=== PATIENT | male | born 1955 | race Caucasian/White ===

== ENCOUNTER 2023-08-04 08:18 | Inpatient (IN) | payer MEDICARE, SELFPAY ==
[2023-08-04] VITALS (12 sets, daily range): BP systolic 126–174; BP diastolic 74–115; PULSE 80–106; RESP 16–32; TEMP 36.6–37.4; O2SAT 78–97; BMI 40.6; BMI 55.7
[2023-08-04 08:32] LABS: Blood Gas Specimen Type VEN; O2 Delivery Device Cannula; SITE Not entered; VBG BASE EXCESS 5 mmol/L (-1.0-3.5); VBG Bicarbonate 31 mmol/L (22-26); VBG PO2 41 mmHg (25-40); VBG SO2 68 % (50-70); VBG TCO2 33 mmol/L (23-33); VBG pCO2 64.4 mmHg (41-51)
--- NOTE | 2023-08-04 08:34 | EKG12_ITS ---
Test Reason : SOB Blood Pressure : / mmHG Vent. Rate : 106 BPM Atrial Rate : 106 BPM P-R Int : 140 ms QRS Dur : 130 ms QT Int : 366 ms P-R-T Axes : 057 -16 046 degrees QTc Int : 486 ms Sinus tachycardia with occasional Premature ventricular complexes Right bundle branch block Abnormal ECG Confirmed by GONZALEZ HARDING, CHESTER ([id number]), newspaper editor BOB DILL ([id number]) on 08/05/2023 9:57:16 AM Referred By: WAYNE/SHU Confirmed By:CHESTER ROTH MD
--- NOTE | 2023-08-04 08:34 | RAD_ITS ---
STUDY: X-RAY CHEST REASON FOR EXAM: Male, 67 years old. Chest pain. TECHNIQUE: Single frontal view of the chest. COMPARISON: None. FINDINGS: The lungs are clear and expanded. There is no demonstrated pleural abnormality. Cardiomegaly. Normal mediastinum and estrellita. Normal visualized pulmonary arteries. Normal visualized aortic arch and descending thoracic aorta. Normal visualized thoracic spine. Normal visualized ribs, clavicles, and shoulders. There is no demonstrated abnormality of the visualized soft tissue structures of the upper abdomen. RAD/Chest 1 View (Portable) IMPRESSION: No active or acute cardiopulmonary disease. Electronically Signed: Anand Spaulding MD at 9:31 EST ,
--- NOTE | 2023-08-04 08:36 | ED.RN ---
NO OLD EKG
--- NOTE | 2023-08-04 08:39 | EDS_ITS ---
HPI History of Present Illness Chief Complaint: Shortness of Breath Informant: patient Onset/Context/Timing Onset: Days Context: gradual Timing: Continuous Current Severity: Moderate Maximum Severity: Moderate Worsened by: Coughing Relieved by: Oxygen Associated Symptoms cough Chest Pain: Positive for None Narrative Narrative: 67-year-old male used to smoke quit 3 years ago. Denies any significant past medical history. Send his recently had COVID he has had a cough and chills with shortness of breath and wheezing over the last 3 to 4 days. Denies any fever. He had some vomiting without diarrhea. No history of DVT or PE. No leg pain or swelling. No hemoptysis. No recent travel, surgery or immobilization. PE Risk Factors: Negative for Cancer, OCP + Smoking + > 35, Prior DVT or PE, Recent immobilization, Recent surgery or Recent travel Recent Illness/Hospitalization: No PFSH PFSH Medical History Left inguinal hernia Perforated, severe stomach ulcer Home Medications hydrochlorothiazide 25 mg tablet 25 mg PO DAILY BLOOD PRESSURE 08/04/23 [History Last Taken 08/03/23] tamsulosin 0.4 mg capsule 0.4 mg PO QHS PROSTATE 08/04/23 [History Last Taken 08/03/23] Allergy/AdvReac Type Severity Reaction Status Date / Time No Known Allergies Allergy Verified 08/04/23 08:19 Social History Smoking Status: Former smoker alcohol intake: never ROS ROS ED ROS Narrative Cough. Chills. Wheezing. Shortness of breath. Review of Systems ROS Unobtainable: Denies due to encephalopathy Constitutional Constitutional ED: Reports chills; Denies fever(s) Eyes Eyes: Denies blurry vision ENT ENT ED: Denies ear pain or rhinorrhea Cardiovascular Cardiovascular: Denies chest pain Respiratory/Chest Respiratory/Chest: Reports cough and dyspnea Gastrointestinal Gastrointestinal: Reports nausea and vomiting; Denies abdominal pain, constipation, diarrhea or melena Genitourinary Genitourinary ED: Denies dysuria or hematuria Musculoskeletal Musculoskeletal: Denies arthralgias Integumentary Denies abscess Neurologic Neurologic: Denies headache(s) Psychiatric Psychiatric: Denies anxiety Endocrine Endocrinology: Denies cold intolerance Hematologic/Lymphatic Hematologic/Lymphatic: Denies easy bleeding, easy bruising or lymphadenopathy Allergic/Immunologic Allergic/Immunologic ED: Denies mouth swelling, tongue swelling or urticaria EXAM Physical Exam Narrative Exam Narrative: 67-year-old male respiratory distress. Improving however on oxygen. Temperature nine 9.4. Pulse ox initially on room air was 70% on 6 L he is 94%. He is obviously hypoxic on room air. HEENT exam mild dry mucous membranes. Neck nontender no JVD. No lymphadenopathy. Lungs coarse breath sounds bilaterally. Diffuse expiratory wheezes. No rales or rhonchi. Heart tachycardic 105 no murmur. Chest wall nontender. Abdomen soft nontender. Moving all 4 extremities. Nontender no edema. Neurologically is awake and alert with no focal motor deficits. Const Vital Signs: 08/04/23 08:19 08/04/23 08:22 08/04/23 08:20 Temperature 99.4 F H Temperature Source Oral Pulse Rate 105 H Respiratory Rate 32 H Respiratory Effort Normal Respiratory Depth Normal Respiratory Pattern Normal Blood Pressure 174/115 H Blood Pressure Mean 134 Pulse Ox 78 97 Oxygen Delivery Method Room Air Room Air Nasal Cannula Oxygen Flow Rate (L/min) 6 6 08/04/23 08:46 08/04/23 08:46 Temperature Temperature Source Pulse Rate 104 H Respiratory Rate 26 H Respiratory Effort Respiratory Depth Respiratory Pattern Tachypnea Blood Pressure Blood Pressure Mean Pulse Ox 97 Oxygen Delivery Method Nasal Cannula Oxygen Flow Rate (L/min) 4 Positive well nourished and well developed; Negative for cachectic, contractures or unkempt General Appearance ED: well developed; Negative for unkempt, cachectic, contractures, NAD or pallor Nutritional Appearance: Negative for cachectic HEENT Reports dry mucous membranes atraumatic; Negative for trauma or tenderness Mouth ED: Yes dry mucous membranes Mouth: dry mucous membranes Eyes PERRL and EOMs intact bilaterally General Eye ED: Negative for pale conjunctiva or scleral icterus Neck no lymphadenopathy, supple, no meningeal signs and no JVD General: Negative for tenderness Lymph Lymphatic: Negative for other Chest Wall Chest: Negative for other Resp No normal respiratory effort and No clear to auscultation bilaterally Auscultation: wheezes; Negative for rales, rhonchi or diminished lung sounds Cardio regular rhythm, S1 normal heart sound, S2 normal heart sound and no murmurs; Negative for regular rate Rate: tachycardic GI non-tender, non-distended and no masses Inspection: Negative for other Auscultation: normoactive bowel sounds Palpation: soft; Negative for tender, guarding or rebound tenderness present Back/Spine no CVA tenderness and normal to inspection General Back: Negative for CVA tenderness or tenderness Extremity normal to inspection General Extremety ED: Negative for edema or tenderness General Extremity: Negative for edema Neuro oriented x3 and CN's II-XII intact bilaterally Sensorium / Orientation: alert, oriented to person, oriented to place and oriented to time; Negative for orientation impaired, confused, lethargic or stuporous Motor Exam: strength 5/5 throughout Psych mental status grossly normal Appearance: Negative for unkempt Attitude: No agitated Mood & Affect: Negative for depressed, anxious or tearful Thought Process: normal thought process Skin no wounds and skin turgor normal General Skin Exam: Negative for jaundice or pallor Lesions: no lesions Rashes: no rashes Trauma: Negative for abrasion or laceration MDM MDM MDM Narrative Medical decision making narrative: 67-year-old male suspect viral respiratory infection most likely COVID. Wheezing will be treated with aerosols DuoNeb and albuterol. IV Solu-Medrol. Chest x-ray and labs. Most likely do his hypoxia need to be admitted. Repeat exam at 9:37 AM doing better but with oxygen on he still only at 89%. He is still wheezing. He will be admitted for acute hypoxia secondary to respiratory infection and bronchospasm. RSV positive. Hospitalist is on page. History & Record Review Discussion w/independent historian: Patient Additional record(s) reviewed:: Prior inpatient record, Prior outpatient record, Prior ED visit and Prior labs Lab Data Attestation: I reviewed the patient's lab results. Lab results narrative: Venous blood gas showed a pH of 7.29 with a pCO2 of 64 pO2 of 40 and a sat of 68%. Seen normal. White count 8. H&H 15 and 40. Platelets 189. Electrolytes show a gap of 4 normal BUN and creatinine 12 and 0.9. Glucose 145. Troponin normal at 21. RSV positive. COVID and flu negative. Labs: Laboratory Results - last 24 hr 08/04/23 08:21 WBC 8.3 RBC 4.78 Hgb 15.6 Hct 48.3 MCV 101.0 H MCH 32.6 H MCHC 32.3 RDW Std Deviation 48.2 H RDW Coeff of Huey 12.9 Plt Count 189 MPV 10.6 Immature Gran % (Auto) 0.400 Neut % (Auto) 82.6 H Lymph % (Auto) 7.4 L Wilcox % (Auto) 8.8 Eos % (Auto) 0.4 Baso % (Auto) 0.4 Absolute Neuts (auto) 6.9 Absolute Lymphs (auto) 0.61 L Nucleated RBC % 0 Sodium 136 Potassium 4.0 Chloride 100 Carbon Dioxide 32.0 Anion Gap 4 L BUN 12 Creatinine 0.90 Estim Creat Clear Calc 86.22 Est GFR (MDRD) Af Amer 107 Est GFR (MDRD) Non-Af 89 BUN/Creatinine Ratio 13.3 Glucose 145 H Calcium 9.2 Troponin I High Sens 21 ABG Data ABG results: ABG 08/04/23 08:28 Specimen Type CELIA Sample Site Not entered O2 % 6.0 VBG pH 7.30 L VBG pO2 41 H VBG HCO3 31 H VBG Total CO2 33 VBG O2 Sat (Calc) 68 VBG Base Excess 5 H POC Mix VBG pCO2 Pt Tmp 64.4 H O2 Delivery Device Cannula Radiography Chest X-Ray - ED: 1 View, Read by ED Physician, Read by Radiologist, Heart, Lungs, Mediastinum, Bony Structures, No Acute Disease and Chronic Changes Diagnostic Testing: Clinical Impression(s) from Imaging Studies Chest X-Ray 08/04/23 08:34 IMPRESSION: No active or acute cardiopulmonary disease. Electronically Signed: Anand Spaulding MD at 9:31 EST Reading Location ID and State: [address] [place] [address] , Service support , Chest x-ray portable, single view, interpreted myself and radiologist shows no acute abnormality. Normal cardiac silhouette. No infiltrate. Rhythm Strip Rhythm Strip: Sinus Tach Rate: 106 Ectopy: PVC(s) EKG Initial EKG: Attestation: I personally reviewed and interpreted this EKG as follows: Interpretation: No Acute Injury Pattern and Sinus Tachycardia Comments: Sinus tachycardia rate of 106. Right bundle branch block. Occasional PVCs. No acute signs of SC or ischemia. Discharge Plan Dx/Rx/DC Orders Clinical Impression: Bilateral wheezing, RSV bronchitis, Respiratory failure, Hypoxia Disposition Disposition: Acute Care Hospital [facility]
[2023-08-04] MEDS: MethylPREDNISolone 125 MG/2 ML Vial IV (08:42)
[2023-08-04] MEDS: Albuterol 2.5 MG/3 ML VIAL.NEB. INHALATION (08:46)
[2023-08-04] MEDS: Ipratropium/Albuterol Sulfate 3 ML AMPUL.NEB INHALATION ×3 (08:46→21:37)
[2023-08-04 09:07] LABS: Absolute Lymphocyte Count 0.61 X10^3/uL (0.83-4.51); Absolute Neutrophil Count 6.9 X10^3/uL (2.0-7.7); Basophil# 0.03 X10^3/uL; Basophil% 0.4 % (0-1); Eosinophil# 0.03 X10^3/uL; Eosinophils% 0.4 % (0-5); Hematocrit 48.3 % (40-54); Hemoglobin 15.6 g/dL (13.0-16.5); Lymphocyte # 0.61 X10^3/ul (0.83-4.51); Lymphocyte % 7.4 % (19-41); Mean Corp Hgb Conc 32.3 g/dL (32-36); Mean Corpuscular Hgb 32.6 pg (27.0-32.0); Mean Platelet Vol. 10.6 fl (6.2-12.0); Monocyte# 0.73 X10^3/uL; Monocyte% 8.8 % (0-10); NRBC Flagged by Analyzer 0 % (0-5); Neutrophil # 6.85 X10^3/uL (2.7-7.7); Neutrophil % 82.6 % (47-70); Platelet Count 189 K/mm3 (150-450); RBC Distribution Width CV 12.9 % (11.6-14.6); RBC Distribution Width SD 48.2 fl (35.1-43.9); Red Blood Count 4.78 M/mm3 (4.6-6.2); White Blood Count 8.3 K/mm3 (4.4-11.0)
[2023-08-04 09:10] LABS: Anion Gap 4 (5-15); BUN 12 mg/dL (7-18); BUN/Creat Ratio 13.3 RATIO (10-20); Calcium,Total 9.2 mg/dL (8.5-10.1); Chloride 100 mmol/L (98-107); EST Glomerular Filtration Rate 89 mL/min (>60); Est Glom Filt Rate - Afr Amer 107 mL/min (>60); Estimated Creatinine Clearance 86.22 ml/min; Glucose 145 mg/dL (74-106); Sodium Level 136 mmol/L (136-145); Troponin-I HS 21 pg/mL (3.0-78.0)
--- OUTSIDE RECORDS SUMMARY | 2023-08-04 09:31 | XMS RPT_ITS | CCD ---
Author Name Unknown Address [address] [place] [address] Organization [facility] Care Team Providers [facility] Name Role Phone Keanu Baldwin MD Primary Care Provider [phone] KEANU BALDWIN Primary Care Unavailable BALTAZAR CATALAN JR Attending UnavailBALTAZAR Santiago JR Referring UnavailKEANU Perez Referring Unavailable KEANU BALDWIN Primary Care Unavailable KEANU BALDWIN Attending Unavailable KEANU BALDWIN Primary Care Unavailable KEANU BALDWIN Referring Unavailable KEANU BADLWIN Primary Care Unavailable ABHISHEK DIAS Attending Unavailable KEANU BALDWIN Referring Unavailable KEANU BALDWIN Primary Care Unavailable KEANU BALDWIN Primary Care Unavailable KEANU BALDWIN Attending Unavailable Keanu Baldwin MD Primary Care Provider Medications Completed/Discontinued Medications Medication Drug Class(es) Dates Sig (Normalized) Sig (Original) acetaminophen 500 mg oral tablet (8 sources) Start: 04-10-2021 take 2 tablets by mouth every eight hours as needed acetaminophen (TYLENOL EXTRA STRENGTH) 500 mg tablet Take 2 tablets by mouth every 8 hours as needed for pain. 0 04/10/2021 Active Problems Active Problems Problem Classification Problem Date Documented Da te Episodic/Chronic Deficiency and other anemia (3 sources) Anemia; Translations: [Anemia, unspecified] Episodic Genitourinary symptoms and ill-defined conditions (1 source) Nocturia; Translations: [Benign prostatic hyperplasia with nocturia] Onset: 12-06-2022 Episodic Hyperplasia of prostate (2 sources) Nocturia due to benign prostatic hypertrophy; Translations: [Benign prostatic hyperplasia with lower urinary tract symptoms] Onset: 12-06-2022 Chronic Other male genital disorders (2 sources) Encysted hydrocele of spermatic cord; Translations: [Encysted hydrocele] Episodic Other male genital disorders (2 sources) Adult hydrocele; Translations: [Hydrocele, unspecified] Episodic Other nutritional; endocrine; and metabolic disorders (9 sources) Obese class II; Translations: [Obesity, unspecified] Onset: 04-03-2021 04-10-2021 Chronic Other nutritional; endocrine; and metabolic disorders (2 sources) Body mass index 40+ - severely obese; Translations: [Morbid (severe) obesity due to excess calories] Onset: 01-07-2023 01-07-2023 Chronic Other nutritional; endocrine; and metabolic disorders (1 source) Obesity, unspecified; Translations: [Obesity, Class II, BMI 35-39.9] Onset: 04-10-2021 Chronic Other screening for suspected conditions (not mental disorders or infectious disease) (3 sources) Patient encounter status; Translations: [Encounter for screening for malignant neoplasm of colon] Onset: 01-03-2023 Episodic Past or Other Problems Problem Classification Problem Date Documented Date Episodic/Chronic Abdominal hernia (9 sources) Inguinal hernia; Translations: [Unilateral inguinal hernia, without obstruction or gangrene, not specified as recurrent] Onset: 03-29-2021 03-29-2021 Episodic Deficiency and other anemia (1 source) Anemia, unspecified; Translations: [Anemia, unspecified type] Onset: 01-31-2022 Episodic Diabetes mellitus without complication (4 sources) Increased glucose level; Translations: [Other abnormal glucose] Onset: 01-31-2022 Episodic Residual codes; unclassified (9 sources) History of hernia repair; Translations: [Other specified postprocedural states] Onset: 04-10-2021 04-10-2021 Episodic Screening and history of mental health and substance abuse codes (8 sources) Ex-smoker; Translations: [Personal history of nicotine dependence] Onset: 03-30-2021 03-30-2021 Episodic Results Test Name Value Interpretation Reference Range Facil ity Vital Signs Date Time Vital Sign Value Performing Clinician Sriram gilbert 01-03-2023 13:40-0400 Diastolic blood pressure 78 mm[Hg] Abhishek Dias MD Work Phone: [facility] 01-03-2023 13:40-0400 Heart rate 66 /min Abhishek Dias MD Work Phone: [facility] 01-03-2023 13:40-0400 Respiratory rate 18 /min Abhishek Dias MD Work Phone: [facility] 01-03-2023 13:40-0400 SaO2% (BldA) [Mass fraction] 97 % Abhishek Dias MD Work Phone: [facility] 01-03-2023 13:40-0400 Systolic blood pressure 150 mm[Hg] Abhishek Dias MD Work Phone: [facility] 01-03-2023 11:31-0400 Body temperature 97.81 [degF] Abhishek Dias MD Work Phone: [facility] 12-02-2022 16:48-0400 Body height 175.3 cm Keanu Baldwin MD Work Phone: [facility] 12-02-2022 16:48-0400 Body weight 136.62 kg Keanu Baldwin MD Work Phone: [facility] 12-02-2022 16:48-0400 Diastolic blood pressure 92 mm[Hg] Keanu Baldwin MD Work Phone: [facility] 12-02-2022 16:48-0400 Heart rate 78 /min Keanu Baldwin MD Work Phone: [facility] 12-02-2022 16:48-0400 Respiratory rate 16 /min Keanu Baldwin MD Work Phone: [facility] 12-02-2022 16:48-0400 Systolic blood pressure 160 mm[Hg] Keanu Baldwin MD Work Phone: [facility] 02-19-2022 11:17-0400 Body height 175.3 cm Baltazar Catalan Jr., MD Work Phone: [facility] 02-19-2022 11:17-0400 Body weight 126.55 kg Baltazar Catalan Jr., MD Work Phone: [facility] 01-31-2022 10:48-0400 Body weight 127.28 kg Keanu Baldwin MD Work Phone: [facility] 01-31-2022 10:48-0400 Diastolic blood pressure 78 mm[Hg] Keanu Baldwin MD Work Phone: [facility] 01-31-2022 10:48-0400 Heart rate 68 /min Keanu Baldwin MD Work Phone: [facility] 01-31-2022 10:48-0400 Respiratory rate 16 /min Keanu Baldwin MD Work Phone: [facility] 01-31-2022 10:48-0400 Systolic blood pressure 130 mm[Hg] Keanu Baldwin MD Work Phone: [facility] 12-31-2021 15:23-0400 Body weight 130.18 kg Keanu Baldwin MD Work Phone: [facility] 12-31-2021 15:23-0400 Diastolic blood pressure 88 mm[Hg] Keanu Baldwin MD Work Phone: [facility] 12-31-2021 15:23-0400 Heart rate 64 /min Keanu Baldwin MD Work Phone: [facility] 12-31-2021 15:23-0400 Respiratory rate 20 /min Keanu Baldwin MD Work Phone: [facility] 12-31-2021 15:23-0400 SaO2% (BldA) [Mass fraction] 95 % Keanu Baldwin MD Work Phone: [facility] 12-31-2021 15:23-0400 Systolic blood pressure 140 mm[Hg] Keanu Baldwin MD Work Phone: [facility] 11-20-2021 13:35-0400 Body height 176.5 cm Baltazar Catalan Jr., MD Work Phone: [facility] 11-20-2021 13:35-0400 Body weight 123.83 kg Baltazar Catalan Jr., MD Work Phone: [facility] Encounters Encounter Date Encounter Type Care Provider Facility Start: 01-14-2023 Telephone encounter Abhishek Dias MD Work Phone: General Surgery Procedures Date Procedure Procedure Detail Performing Clinician Start: 01-03-2023 Level iv surg pathol ogy gross&microscopic exam Abhishek Dias MD Work Phone: Start: 01-03-2023 Colonoscopy flx dx w /collj spec when pfrmd Keanu Baldwin MD Work Phone: Start: 01-03-2023 Colonoscopy Abhishek rutherford MD Work Phone: Start: 12-06-2022 Lipid 1996 panel - S abelino or Plasma Abhishek Dias MD Work Phone: Start: 05-21-2021 Adult depression scr eening assessment Baltazar Catalan Jr., MD Work Phone: Plan of Treatment Date Care Activity Detail Author Start: 12-07-2027 Lipid 1996 panel - Serum or Plasma Lipid Screening [facility] Start: 12-07-2027 LIPID SCREEN LIPID SCREEN [facility] Start: 12-07-2027 PROSTATE CANCER SCREENING DISCUSSION PROSTATE CANCER SCREENING DISCUSSION [facility] Start: 01-03-2026 Colonoscopy COLONOSCOPY [facility] Start: 01-03-2026 COLORECTAL CANCER SCREENING COLORECTAL CANCER SCREENING [facility] Start: 12-06-2025 DIABETES SCREEN DIABETES SCREEN [facility] Start: 12-06-2025 Diabetes Screening Diabetes Screening [facility] Start: 01-31-2025 DIABETES SCREEN DIABETES SCREEN [facility] Start: 04-10-2024 DIABETES SCREEN DIABETES SCREEN [facility] Start: 06-04-2023 End: 08-04-2023 Comprehensive metabolic 2000 panel - Serum or Plasma COMP METABOLIC PANEL Lab Routine Elevated glucose Expected: 06/04/2023 (Approximate), Expires: 08/04/[address] [facility] Work Phone: Immunizations Immunization Date Immunization Notes Care Provider Fa cili 04-23-2021 COVID-19 vaccine, booster dose (MODERNA) Keanu Baldwin MD Work Phone: [facility] 11-09-2020 COVID-19 vaccine, fu ll dose (MODERNA) Baltazar Catalan Jr., MD Work Phone: [facility] 10-26-2020 COVID-19 vaccine, fu ll dose (MODERNA) Baltazar Catalan Jr., MD Work Phone: [facility] Payers Date Payer Category Payer Medicare [facility] AARP MEDICAR E [facility] AARP MEDICARE PPO [id number] 2022-Present [phone] [address] [address] [place] [address] PPO [id number] 2022 Medicare [id number] 2019 Medicare [id number] 2019 Medicare [id number] 2019 Medicare [id number] 2019 Unknown ANTHEM ANTHEM ME DICARE SUPPLEMENT [id number] 2019-Present [phone] [address] [place] [address] Indemnity [id number] Social History Date Type Detail Facility Start: 01-25-2021 End: 12-02-2022 Tobacco smoking status NHIS Ex-smoker [facility] End: 10-26-2020 History of tobacco use Current smoker [facility] Start: 01-25-2021 End: 12-02-2022 Cigarettes smoked current (pack per day) - Reported [address] [facility] Work Phone: Start: 01-25-2021 End: 12-02-2022 Tobacco use and exposure Smokeless tobacco non-user [facility] Start: 11-20-2021 End: 01-03-2023 Alcohol intake Ex-drinker (finding) [facility] Start: 1955 Sex Assigned At Not on file [facility] Start: 11-10-2021 End: 02-19-2022 Exposure to SARS-CoV-2 (event) Not sure [facility] End: 10-26-2020 History of tobacco use Cigarette Smoker [facility] Start: 12-02-2022 End: 01-03-2023 Tobacco use panel [facility] Work Phone: Adult Depression Screening Assessment [address] [facility] Work Phone: Medical Equipment Procedure Code Equipment Code Equipment Origin al Text Equipment Identifier Dates Mesh Prolene Squ are Flat [id number] Surgical Knit Nonabsorbable Nonreactive - [id number] Start: 04-04-2021 Clinical Notes 04-04-2021 to 01-14-2023 Telephone Encounter - Meera Kirk RN - 01/14/2023 1:58 PM EDTTelephone Encounter - Kaila Webber PA-C - 01/14/2023 12:22 PM EDTTelephone Encounter - Meera Kirk RN - 01/14/2023 10:25 AM EDT Note Date & Type Note Facility 01-14-2023 Miscellaneous Notes Kaila's message reviewed with Yusuf. Health maintenance and surgical history updated. Recall letter placed. Meera Kirk RN Please let patient know pathology was benign, but one of the polyps came back as an adenoma which is a precancerous kind of polyp. Recommend repeat colonoscopy in 3 years for surveillance. Please update HM and surgical history and generate recall letter Yusuf had a colonoscopy with Dr. Dias on 01/03/2023 and biopsies were taken. Yusuf was to call the office in 1 week for results, but as of today, he has not. Please review the pathology and advise regarding follow up. Meera Kirk RN documented in this encounter [facility] 01-03-2023 Note HNO ID: [id number] Author: Christine Johns RN Service: ? Author Type: Registered Nurse Type: Nursing Progress Note Filed: 01/03/2023 1:22 PM Note Text: Abdomen soft non-distended. Will continue to monitor. [facility] 01-03-2023 Nurse Note Abdomen soft non-distended. Will continue to monitor. documented in this encounter [facility] 01-03-2023 History and physical note PROCEDURAL SEDATION HISTORY AND PHYSICAL EXAM SERVICE DATE: 01/03/2023 SERVICE TIME: 12:34 PM Subjective HPI: This is a 67 year old male who presents for screening colonoscopy PAST ANESTHESIA HISTORY: No history of adverse event History reviewed. No pertinent past medical history. PAST SURGICAL HISTORY Procedure Laterality Date INGUINAL HERNIA REPAIR HX 03/2021 PAST SURGICAL HISTORY OF 1993 pt reports he had epigastric ulcer and had to have surgery through the abdomen to control the bleeding Prior to Admission medications as of 01/03/23 1124 Medication Sig Last Dose Taking hydroCHLOROthiazide 25 mg tablet Take 1 tablet by mouth once daily. 01/02/2023 Yes tamsulosin (FLOMAX) 0.4 mg Take 1 capsule by mouth daily at bedtime. 01/02/2023 Yes acetaminophen (TYLENOL EXTRA STRENGTH) 500 mg tablet Take 2 tablets by mouth every 8 hours as needed for pain. Unknown ALLERGIES No Known Allergies Objective PHYSICAL EXAM: The remainder of the physical exam is noncontributory. AIRWAY: Airway Visualization of Uvula: Yes Mouth opening greater than 2 fingerbreadths: Yes Neck Full Range of Motion: Yes LUNGS: Lungs clear to auscultation CARDIAC: Regular rhythm,Regular rate Assessment/Plan ASA Class: ASA Class:: Patient with mild systemic disease Active Problems: * No active hospital problems. * Resolved Problems: * No resolved hospital problems. * Medication and Non-Pharmacologic VTE Prophylaxis/Anticoagulants VTE Prophylaxis: VTE prophylaxis appropriate Provisional Diagnosis/Treatment Plan: screening colonoscopy SEDATION GOAL: Moderate SIGNATURE: Abhishek Dias MD PATIENT NAME: Yusuf Up DATE: January 03, 2023 TIME: 12:34 PM documented in this encounter [facility] 12-03-2022 Note HNO ID: [id number] Author: Mikel Cabrera Service: ? Author Type: ? Type: Progress Notes Filed: 12/03/2022 12:43 PM Note Text: Patients answered and stated he will call back, will reach out in a week or 2 if not scheduled colonoscopy by then. GABBI 12/03 [facility] 12-02-2022 Note HNO ID: [id number] Author: Keanu Baldwin MD Service: ? Author Type: Physician Type: Progress Notes Filed: 12/02/2022 8:00 PM Note Text: Chief Complaint Patient presents with: Physical HPI Yusuf Up is a 67 year old male who presents here today for physical. Mini Cog test completed, scored 5/5. Denies having an advanced directive. HM: Depression screening; denies feeling depressed or hopeless. Depression screening tool completed and reviewed. Based on score and interview, patient is not at risk for depression. Screening tool discussed with patient, and I recommended no further intervention at this time No bowel, issues. : He does have urinary frequency and nocturia. Gets 3 x a night to urinate. Had seen Urology Dr. Catalan for encysted hydrocele. Uses HCTZ to keep this smaller, but has not resolved. HTN: No chest pains, dizziness, or SOB. Taking HCTZ 25 mg daily however he has been out of medication at least 2 months. Does not check BP at home. Tries to watch diet. Denies much exercise, states he isn't getting as much as he should. When the weather gets nicer he will be more active outdoors. He does have an stationary bike he uses occ. Does get some SOB with exertion, climbing stairs. Pain: uses Tylenol prn. Has occ lower back around sides. Past medical history, appointments, medications, allergies reviewed. Previous Medical History No past medical history on file. Previous Surgical History PAST SURGICAL HISTORY Procedure Laterality Date INGUINAL HERNIA REPAIR HX 03/2021 PAST SURGICAL HISTORY OF 1993 pt reports he had epigastric ulcer and had to have surgery through the abdomen to control the bleeding Family History FAMILY HISTORY Problem Relation Age of Onset Anesthesia Problems No Family History Patient Allergies ALLERGIES No Known Allergies Current Medications Current Outpatient Medications on File Prior to Visit Medication Sig hydroCHLOROthiazide (HYDRODIURIL, ESIDRIX) 25 mg tablet Take 1 tablet by mouth once daily. acetaminophen (TYLENOL EXTRA STRENGTH) 500 mg tablet Take 2 tablets by mouth every 8 hours as needed for pain. No current facility-administered medications on file prior to visit. Social History Social History Tobacco Use Smoking status: Former Packs/day: 1.00 Years: 50.00 Pack years: 50.00 Types: Cigarettes Quit date: 10/2020 Years since quittin.1 Smokeless tobacco: Never Vaping Use Vaping Use: Never used Substance Use Topics Alcohol use: Not Currently Drug use: Never EXAM: BP 160/92 Pulse 78 Resp 16 Ht 175.3 cm (5' 9 ) Wt (!) 136.6 kg (301 lb 3.2 oz) BMI 44.48 kg/m? General Appearance: Well appearing, alert, in no acute distress, well-hydrated, well nourished. and Morbidly obese. Lungs: Lungs clear to auscultation. No wheezing, rhonchi, rales.. Heart: RRR without murmur, gallop, or rubs. No ectopy. Genitalia: chronic left side hydrocele, non tender, 10-15 cm. Health Maintenance List ABDOMINAL AORTIC ANEURYSM SCREENING Never done HEPATITIS C SCREENING Never done LIPID SCREEN Never done COLORECTAL CANCER SCREENING Never done LUNG CANCER SCREENING Never done PROSTATE CANCER SCREENING DISCUSSION Never done PNEUMOCOCCAL: 65+(1 - PCV) Never done COVID-19 VACCINE(4 - Booster) due on 06/18/2021 ADVANCE DIRECTIVE DISCUSSION due on 07/28/2022 DEPRESSION ASSESSMENT Never done DTAP,TDAP,TD(1 - Tdap) due on 12/31/2022 SHINGRIX VACCINE(1 of 2) due on 12/31/2022 INFLUENZA(Season Ended) due on 03/28/2023 DIABETES SCREEN due on 01/31/2025 Data reviewed none ASSESSMENT/PLAN: 1. Hydrocele in adult - ICD9: 603.9, ICD10: N43.3 (primary diagnosis) Resume HCTZ - HYDROCHLOROTHIAZIDE 25 MG TABLET 2. Special screening for malignant neoplasms, colon - ICD9: V76.51, ICD10: Z12.11 - COLONOSCOPY SCREENING - PEG 3350 240 GRAM-ELECTROLYTES 22.72 GRAM-6.72 G-5.84 G POWDR FOR SOLN 3. Elevated glucose - ICD9: 790.29, ICD10: R73.09 Check labs; notify - COMP METABOLIC PANEL - HGB A1C - LIPID PANEL BASIC - TSH BLD 4. Benign prostatic hyperplasia with nocturia - ICD9: 600.01, 788.43, ICD10: N40.1, R35.1 - PSA/PROSTSPECAG DIAG 5. Anemia, unspecified type - ICD9: 285.9, ICD10: D64.9 6. Obesity, Class II, BMI 35-39.9 - ICD9: 278.00, ICD10: E66.9 - TSH BLD Notify of lab results Follow up prn I agree with the Chief Complaint, ROS, and Past Histories independently gathered by the clinical support team assoc and the remaining scribed note accurately describes my personal service to the patient. Medical Decision Making: Problems: Moderate: 2+ stable chronic illnesses Data: Unique test(s) ordered: 3+ Risk: Moderate: Drug management Medical Decision Making Level: 4 - Moderate Keanu Baldwin MD The documentation for this note was completed by Joellen Epps Ma acting as scribe for Keanu Baldwin MD. December 02, 2022 4:52 PM. Joellen Epps Ma WSTR OPEN (more content not included)... [facility] 12-02-2022 History of Present illness Narrative Chief Complaint Patient presents with: Physical HPI Yusuf Up is a 67 year old male who presents here today for physical. Mini Cog test completed, scored 5/5. Denies having an advanced directive. HM: Depression screening; denies feeling depressed or hopeless. Depression screening tool completed and reviewed. Based on score and interview, patient is not at risk for depression. Screening tool discussed with patient, and I recommended no further intervention at this time No bowel, issues. : He does have urinary frequency and nocturia. Gets 3 x a night to urinate. Had seen Urology Dr. Catalan for encysted hydrocele. Uses HCTZ to keep this smaller, but has not resolved. HTN: No chest pains, dizziness, or SOB. Taking HCTZ 25 mg daily however he has been out of medication at least 2 months. Does not check BP at home. Tries to watch diet. Denies much exercise, states he isn't getting as much as he should. When the weather gets nicer he will be more active outdoors. He does have an stationary bike he uses occ. Does get some SOB with exertion, climbing stairs. Pain: uses Tylenol prn. Has occ lower back around sides. Past medical history, appointments, medications, allergies reviewed. Previous Medical History No past medical history on file. Previous Surgical History PAST SURGICAL HISTORY Procedure Laterality Date INGUINAL HERNIA REPAIR HX 03/2021 PAST SURGICAL HISTORY OF 1993 pt reports he had epigastric ulcer and had to have surgery through the abdomen to control the bleeding Family History FAMILY HISTORY Problem Relation Age of Onset Anesthesia Problems No Family History Patient Allergies ALLERGIES No Known Allergies Current Medications Current Outpatient Medications on File Prior to Visit Medication Sig hydroCHLOROthiazide (HYDRODIURIL, ESIDRIX) 25 mg tablet Take 1 tablet by mouth once daily. acetaminophen (TYLENOL EXTRA STRENGTH) 500 mg tablet Take 2 tablets by mouth every 8 hours as needed for pain. No current facility-administered medications on file prior to visit. Social History Social History Tobacco Use Smoking status: Former Packs/day: 1.00 Years: 50.00 Pack years: 50.00 Types: Cigarettes Quit date: 10/2020 Years since quittin.1 Smokeless tobacco: Never Vaping Use Vaping Use: Never used Substance Use Topics Alcohol use: Not Currently Drug use: Never EXAM: BP 160/92 Pulse 78 Resp 16 Ht 175.3 cm (5' 9 ) Wt (!) 136.6 kg (301 lb 3.2 oz) BMI 44.48 kg/m General Appearance: Well appearing, alert, in no acute distress, well-hydrated, well nourished. and Morbidly obese. Lungs: Lungs clear to auscultation. No wheezing, rhonchi, rales.. Heart: RRR without murmur, gallop, or rubs. No ectopy. Genitalia: chronic left side hydrocele, non tender, 10-15 cm. Health Maintenance List ABDOMINAL AORTIC ANEURYSM SCREENING Never done HEPATITIS C SCREENING Never done LIPID SCREEN Never done COLORECTAL CANCER SCREENING Never done LUNG CANCER SCREENING Never done PROSTATE CANCER SCREENING DISCUSSION Never done PNEUMOCOCCAL: 65+(1 - PCV) Never done COVID-19 VACCINE(4 - Booster) due on 06/18/2021 ADVANCE DIRECTIVE DISCUSSION due on 07/28/2022 DEPRESSION ASSESSMENT Never done DTAP,TDAP,TD(1 - Tdap) due on 12/31/2022 SHINGRIX VACCINE(1 of 2) due on 12/31/2022 INFLUENZA(Season Ended) due on 03/28/2023 DIABETES SCREEN due on 01/31/2025 Data reviewed none ASSESSMENT/PLAN: 1. Hydrocele in adult - ICD9: 603.9, ICD10: N43.3 (primary diagnosis) Resume HCTZ - HYDROCHLOROTHIAZIDE 25 MG TABLET 2. Special screening for malignant neoplasms, colon - ICD9: V76.51, ICD10: Z12.11 - COLONOSCOPY SCREENING - PEG 3350 240 GRAM-ELECTROLYTES 22.72 GRAM-6.72 G-5.84 G POWDR FOR SOLN 3. Elevated glucose - ICD9: 790.29, ICD10: R73.09 Check labs; notify - COMP METABOLIC PANEL - HGB A1C - LIPID PANEL BASIC - TSH BLD 4. Benign prostatic hyperplasia with nocturia - ICD9: 600.01, 788.43, ICD10: N40.1, R35.1 - PSA/PROSTSPECAG DIAG 5. Anemia, unspecified type - ICD9: 285.9, ICD10: D64.9 6. Obesity, Class II, BMI 35-39.9 - ICD9: 278.00, ICD10: E66.9 - TSH BLD Notify of lab results Follow up prn I agree with the Chief Complaint, ROS, and Past Histories independently gathered by the clinical support team assoc and the remaining scribed note accurately describes my personal service to the patient. Medical Decision Making: Problems: Moderate: 2+ stable chronic illnesses Data: Unique test(s) ordered: 3+ Risk: Moderate: Drug management Medical Decision Making Level: 4 - Moderate Keanu Baldwin MD The documentation for this note was completed by Joellen Epps Ma acting as scribe for Keanu Baldwin MD. December 02, 2022 4:52 PM. Joellen Epps Ma TR OPEN ACCESS QUESTIONNAIRE 1. Are you currently having any new or unusual stomach/gastrointestinal issues at this time such as constipation, diarrhea, abdominal pain, rectal bleeding etc?No 2. Do you have any difficulty swallowing? No 3. Do you have any implanted devices such as a defibrillator, pacemaker, cardiac stents or deep brain stimulator? No 4. Do you take any Blood thinners such as Coumadin, Plavix, Xarelto, Eliquis, Brilinta or any other blood thinner? No 5. Do you have any new or past cardiac (heart) or pulmonary (lung) issues? No 6. Do you currently use any oxygen? No 7. Have you been hospitalized in the past 6 weeks? No 8. Have you had difficulty with anesthesia previously re: Difficult intubation? No Other difficulty or allergic reaction to anesthesia other than post op N/V? No 9. Are you on dialysis? No 10. Do you have any bleeding disorders such as hemophilia or Factor 5? No 11. Are you an Insulin Dependent Diabetic? No IF ANY OF THE TOP ELEVEN QUESTIONS ARE ANSWERED YES PLEASE SCHEDULE THE PATIENT FOR A CONSULT. advised 12. Is the patient's BMI 40 or greater? Yes / 44.48:Body mass index is 44.48 kg/m .. 13. Do you take any narcotics or anti-Anxiety medications? No 14. Do you use any illegal or recreational drugs including marijuana? No 15. Any alcohol use: No. 16. Have you been diagnosed with chronic liver disease such as hepatitis or cirrhosis? No 17. Do you have a seizure disorder? No 18. Do you have ulcerative colitis or Crohn's disease? No 19. Are you or could you be ? No 20. Any other important health information we should be made aware of prior to your colonoscopy? No To be completed by LIP: Did patient have MAC anesthesia with a previous endoscopy procedure? No Patient appropriate for Open Access Colonoscopy: Yes: appropriate for Open Access Procedure Checklist: Prior to closing the encounter: Complete questionnaire: Yes Confirm Prep order has been Ordered/Pended: Yes. Patient's procedure could be delayed if not given the script for the prep. Please ensure the prep is escripted to pharmacy or printed. Instructions for the prep will print upon filing or pending this smartset. Please send all open access questionnaires to [facility] Pool #[id number] documented in this encounter [facility] 02-19-2022 Note HNO ID: [id number] Author: Baltazar Catalan Jr., MD Service: ? Author Type: Physician Type: Progress Notes Filed: 02/19/2022 12:34 PM Note Text: ESTABLISHED PATIENT OFFICE VISIT HPI Yusuf Up is a 66 year old male who presents refer for L Hydrocele. Had L inguinal hernia repair 04/17 for huge L inguinal hernia. L scrotal swelling has not dissipated. Ct showed large L hydrocele. No pain but very ? 11/20/21 - 6 weeks sp L hydrocele. Healed up well. Hydrocele itself has improved. However still has massive scrotal edema. Has B LE swelling as well. No luts. 02/19/22 - scrotal edema much improved. No hydrocele on exam. No uti. Voiding ok. No fever. LAB: Creatinine Date Value Ref Range Status 01/31/2022 0.80 0.73 - 1.22 mg/dL Final No results found for: PSA Glucose, Urine (mg/dL) Date Value 03/30/2021 Negative Bilirubin, Urine (no units) Date Value 03/30/2021 Negative Ketones, Urine (no units) Date Value 03/30/2021 Negative Specific [place], Ur (no units) Date Value 03/30/2021 1.016 Hemoglobin/Blood,Ur ( ) Date Value 03/30/2021 Negative pH, Urine (no units) Date Value 03/30/2021 7.0 Protein, Urine (no units) Date Value 03/30/2021 Negative Nitrites (no units) Date Value 03/30/2021 Positive WBC, Urine (/HPF) Date Value 03/30/2021 0-5 MEDICATIONS: hydroCHLOROthiazide (HYDRODIURIL, ESIDRIX) 25 mg tablet Take 1 tablet by mouth once daily. acetaminophen (TYLENOL EXTRA STRENGTH) 500 mg tablet Take 2 tablets by mouth every 8 hours as needed for pain. REVIEW OF SYSTEMS Review of Systems Constitutional: Negative. Respiratory: Negative. Cardiovascular: Negative. Gastrointestinal: Negative. Genitourinary: Negative. Skin: Negative. Neurological: Negative. Psychiatric/Behavioral: Negative. HISTORIES History reviewed. No pertinent past medical history. FAMILY HISTORY Problem Relation Age of Onset - Anesthesia Problems No Family History SOCIAL HISTORY Social History Tobacco Use - Smoking status: Former Smoker Packs/day: 1.00 Years: 50.00 Pack years: 50.00 Quit date: 10/2020 Years since quittin.3 - Smokeless tobacco: Never Used Vaping Use - Vaping Use: Never used Substance Use Topics - Alcohol use: Not Currently - Drug use: Never PHYSICAL EXAMINATION General appearance: Well appearing, alert, in no acute distress and well-hydrated, well nourished Skin: Skin color, texture, turgor normal, no suspicious rashes or lesions Respiratory:+ effort Cardiovascular: Not examined GI: Normal abdominal exam, Abdomen soft, non-tender. No masses, organomegaly Musculoskeletal: Negative Neuro: Negative Genitourinary: not examined Impression: (N43.0) Encysted hydrocele (primary encounter diagnosis) Plan: prn Baltazar Catalan Jr, MD 02/19/2022 [facility] 02-19-2022 History of Present illness Narrative ESTABLISHED PATIENT OFFICE VISIT HPI Yusuf Up is a 66 year old male who presents refer for L Hydrocele. Had L inguinal hernia repair 04/17 for huge L inguinal hernia. L scrotal swelling has not dissipated. Ct showed large L hydrocele. No pain but very 11/20/21 - 6 weeks sp L hydrocele. Healed up well. Hydrocele itself has improved. However still has massive scrotal edema. Has B LE swelling as well. No luts. 02/19/22 - scrotal edema much improved. No hydrocele on exam. No uti. Voiding ok. No fever. LAB: Creatinine Date Value Ref Range Status 01/31/2022 0.80 0.73 - 1.22 mg/dL Final No results found for: PSA Glucose, Urine (mg/dL) Date Value 03/30/2021 Negative Bilirubin, Urine (no units) Date Value 03/30/2021 Negative Ketones, Urine (no units) Date Value 03/30/2021 Negative Specific [place], Ur (no units) Date Value 03/30/2021 1.016 Hemoglobin/Blood,Ur ( ) Date Value 03/30/2021 Negative pH, Urine (no units) Date Value 03/30/2021 7.0 Protein, Urine (no units) Date Value 03/30/2021 Negative Nitrites (no units) Date Value 03/30/2021 Positive WBC, Urine (/HPF) Date Value 03/30/2021 0-5 MEDICATIONS: hydroCHLOROthiazide (HYDRODIURIL, ESIDRIX) 25 mg tablet Take 1 tablet by mouth once daily. acetaminophen (TYLENOL EXTRA STRENGTH) 500 mg tablet Take 2 tablets by mouth every 8 hours as needed for pain. REVIEW OF SYSTEMS Review of Systems Constitutional: Negative. Respiratory: Negative. Cardiovascular: Negative. Gastrointestinal: Negative. Genitourinary: Negative. Skin: Negative. Neurological: Negative. Psychiatric/Behavioral: Negative. HISTORIES History reviewed. No pertinent past medical history. FAMILY HISTORY Problem Relation Age of Onset Anesthesia Problems No Family History SOCIAL HISTORY Social History Tobacco Use Smoking status: Former Smoker Packs/day: 1.00 Years: 50.00 Pack years: 50.00 Quit date: 10/2020 Years since quittin.3 Smokeless tobacco: Never Used Vaping Use Vaping Use: Never used Substance Use Topics Alcohol use: Not Currently Drug use: Never PHYSICAL EXAMINATION General appearance: Well appearing, alert, in no acute distress and well-hydrated, well nourished Skin: Skin color, texture, turgor normal, no suspicious rashes or lesions Respiratory:+ effort Cardiovascular: Not examined GI: Normal abdominal exam, Abdomen soft, non-tender. No masses, organomegaly Musculoskeletal: Negative Neuro: Negative Genitourinary: not examined Impression: (N43.0) Encysted hydrocele (primary encounter diagnosis) Plan: prn Baltazar Catalan Jr, MD 02/19/2022 documented in this encounter [facility] 02-07-2022 Miscellaneous Notes Letter mailed to pt home of results. Joellen Epps MA Please notify patient that his lab results from last week look OK; his A1c is a little high at 6.2, so continue to work on diet and losing some weight. His blood count is normal. I would suggest follow up in 6 months. Keanu Baldwin MD documented in this encounter [facility] 01-31-2022 Note HNO ID: [id number] Author: Keanu Baldwin MD Service: ? Author Type: Physician Type: Progress Notes Filed: 01/31/2022 11:53 AM Note Text: Chief Complaint Patient presents with: F/U 1 month HPI Yusuf Up is a 66 year old male who presents here today for 1 month follow up. No bowel, Gi, or urinary issues. Follows with Dr. Catalan, Urology; has appt later this month. Issues with Hydrocele following hernia repair. It has improved with the HCTZ.. No chest pains, dizziness. ?He does get SOB with exertion occ. Taking HCTZ 25 mg daily. Does not check BP at home. He denies any swelling of feet or ankles. Elevated glucose: Tries to watch diet and has been trying to walk for exercise. Past medical history, appointments, medications, allergies reviewed. Previous Medical History No past medical history on file. Previous Surgical History PAST SURGICAL HISTORY Procedure Laterality Date - INGUINAL HERNIA REPAIR HX 03/2021 - PAST SURGICAL HISTORY OF 1993 pt reports he had epigastric ulcer and had to have surgery through the abdomen to control the bleeding Family History FAMILY HISTORY Problem Relation Age of Onset - Anesthesia Problems No Family History Patient Allergies ALLERGIES No Known Allergies Current Medications Current Outpatient Medications on File Prior to Visit Medication Sig - hydroCHLOROthiazide (HYDRODIURIL, ESIDRIX) 25 mg tablet Take 1 tablet by mouth once daily. - acetaminophen (TYLENOL EXTRA STRENGTH) 500 mg tablet Take 2 tablets by mouth every 8 hours as needed for pain. No current facility-administered medications on file prior to visit. Social History Social History Tobacco Use - Smoking status: Former Smoker Packs/day: 1.00 Years: 50.00 Pack years: 50.00 Quit date: 10/2020 Years since quittin.2 - Smokeless tobacco: Never Used Vaping Use - Vaping Use: Never used Substance Use Topics - Alcohol use: Not Currently - Drug use: Never EXAM: BP 130/78 Pulse 68 Resp 16 Wt 127.3 kg (280 lb 9.6 oz) BMI 40.84 kg/m? General Appearance: Well appearing, alert, in no acute distress, well-hydrated, well nourished. and Obese. Lungs: Lungs clear to auscultation. No wheezing, rhonchi, rales.. Heart: RRR without murmur, gallop, or rubs. No ectopy. Large left hydrocele; improved from last visit. Health Maintenance List ABDOMINAL AORTIC ANEURYSM SCREENING Never done LIPID SCREEN Never done COLORECTAL CANCER SCREENING Never done LUNG CANCER SCREENING Never done PROSTATE CANCER SCREENING DISCUSSION Never done PNEUMOCOCCAL: 65+(1 - PCV) Never done COVID-19 VACCINE(4 - Booster) due on 08/23/2021 HEPATITIS C SCREENING due on 05/21/2022 DTAP,TDAP,TD(1 - Tdap) due on 12/31/2022 SHINGRIX VACCINE(1 of 2) due on 12/31/2022 INFLUENZA(Season Ended) due on 03/28/2022 DEPRESSION SCREENING due on 05/21/2022 DIABETES SCREEN due on 04/10/2024 ADVANCE DIRECTIVE DISCUSSION Completed Data reviewed none ASSESSMENT/PLAN: 1. Inguinal hernia without obstruction or gangrene, recurrence not specified, unspecified laterality - ICD9: 550.90, ICD10: K40.90 (primary diagnosis) Continue HCTZ, monitor 2. Elevated glucose - ICD9: 790.29, ICD10: R73.09 Check labs today - COMP METABOLIC PANEL - HGB A1C 3. Anemia, unspecified type - ICD9: 285.9, ICD10: D64.9 - CBC - IRON + TIBC Check labs today; notify of results and follow up I agree with the Chief Complaint, ROS, and Past Histories independently gathered by the clinical support team assoc and the remaining scribed note accurately describes my personal service to the patient. Medical Decision Making: Problems: Moderate: 2+ stable chronic illnesses Data: Unique test(s) ordered: 2 Risk: Moderate: Drug management Medical Decision Making Level: 4 - Moderate Keanu Baldwin MD The documentation for this note was completed by Joellen Epps Ma acting as scribe for Keanu Baldwin MD. January 31, 2022 10:50 AM. Joellen Epps Ma [facility] 01-31-2022 History of Present illness Narrative Chief Complaint Patient presents with: F/U 1 month HPI Yusuf Up is a 66 year old male who presents here today for 1 month follow up. No bowel, Gi, or urinary issues. Follows with Dr. Ctaalan, Urology; has appt later this month. Issues with Hydrocele following hernia repair. It has improved with the HCTZ.. No chest pains, dizziness. He does get SOB with exertion occ. Taking HCTZ 25 mg daily. Does not check BP at home. He denies any swelling of feet or ankles. Elevated glucose: Tries to watch diet and has been trying to walk for exercise. Past medical history, appointments, medications, allergies reviewed. Previous Medical History No past medical history on file. Previous Surgical History PAST SURGICAL HISTORY Procedure Laterality Date INGUINAL HERNIA REPAIR HX 03/2021 PAST SURGICAL HISTORY OF 1993 pt reports he had epigastric ulcer and had to have surgery through the abdomen to control the bleeding Family History FAMILY HISTORY Problem Relation Age of Onset Anesthesia Problems No Family History Patient Allergies ALLERGIES No Known Allergies Current Medications Current Outpatient Medications on File Prior to Visit Medication Sig hydroCHLOROthiazide (HYDRODIURIL, ESIDRIX) 25 mg tablet Take 1 tablet by mouth once daily. acetaminophen (TYLENOL EXTRA STRENGTH) 500 mg tablet Take 2 tablets by mouth every 8 hours as needed for pain. No current facility-administered medications on file prior to visit. Social History Social History Tobacco Use Smoking status: Former Smoker Packs/day: 1.00 Years: 50.00 Pack years: 50.00 Quit date: 10/2020 Years since quittin.2 Smokeless tobacco: Never Used Vaping Use Vaping Use: Never used Substance Use Topics Alcohol use: Not Currently Drug use: Never EXAM: BP 130/78 Pulse 68 Resp 16 Wt 127.3 kg (280 lb 9.6 oz) BMI 40.84 kg/m General Appearance: Well appearing, alert, in no acute distress, well-hydrated, well nourished. and Obese. Lungs: Lungs clear to auscultation. No wheezing, rhonchi, rales.. Heart: RRR without murmur, gallop, or rubs. No ectopy. Large left hydrocele; improved from last visit. Health Maintenance List ABDOMINAL AORTIC ANEURYSM SCREENING Never done LIPID SCREEN Never done COLORECTAL CANCER SCREENING Never done LUNG CANCER SCREENING Never done PROSTATE CANCER SCREENING DISCUSSION Never done PNEUMOCOCCAL: 65+(1 - PCV) Never done COVID-19 VACCINE(4 - Booster) due on 08/23/2021 HEPATITIS C SCREENING due on 05/21/2022 DTAP,TDAP,TD(1 - Tdap) due on 12/31/2022 SHINGRIX VACCINE(1 of 2) due on 12/31/2022 INFLUENZA(Season Ended) due on 03/28/2022 DEPRESSION SCREENING due on 05/21/2022 DIABETES SCREEN due on 04/10/2024 ADVANCE DIRECTIVE DISCUSSION Completed Data reviewed none ASSESSMENT/PLAN: 1. Inguinal hernia without obstruction or gangrene, recurrence not specified, unspecified laterality - ICD9: 550.90, ICD10: K40.90 (primary diagnosis) Continue HCTZ, monitor 2. Elevated glucose - ICD9: 790.29, ICD10: R73.09 Check labs today - COMP METABOLIC PANEL - HGB A1C 3. Anemia, unspecified type - ICD9: 285.9, ICD10: D64.9 - CBC - IRON + TIBC Check labs today; notify of results and follow up I agree with the Chief Complaint, ROS, and Past Histories independently gathered by the clinical support team assoc and the remaining scribed note accurately describes my personal service to the patient. Medical Decision Making: Problems: Moderate: 2+ stable chronic illnesses Data: Unique test(s) ordered: 2 Risk: Moderate: Drug management Medical Decision Making Level: 4 - Moderate Keanu Baldwin MD The documentation for this note was completed by Joellen Epps Ma acting as scribe for Keanu Baldwin MD. January 31, 2022 10:50 AM. Joellen Epps Ma documented in this encounter [facility] 12-31-2021 History of Present illness Narrative Chief Complaint Follow up HPI Yusuf Up is a 66 year old male who presents here today for a 6 month follow up. Pt here today for his 6 month follow up. He is now retired. Doing a lot of gardening. Follows with Dr. Catalan, had L hydrocelectomy procedure completed on 10/05/21 due to scrotal swelling not dissipating after having L inguinal hernia repair (huge hernia) on 04/17/21. Despite surgery pt continues to still have massive scrotal edema. According to his most recent note he recommended follow up here to see about diuresis. Cardio - No chest pains, dizziness. He does get SOB with exertion occ. He states he tries to watch his diet some. He does try to do some walking for exercise. Past medical history, appointments, medications, allergies reviewed. Previous Medical History No past medical history on file. Previous Surgical History PAST SURGICAL HISTORY Procedure Laterality Date INGUINAL HERNIA REPAIR HX 03/2021 PAST SURGICAL HISTORY OF 1993 pt reports he had epigastric ulcer and had to have surgery through the abdomen to control the bleeding Family History FAMILY HISTORY Problem Relation Age of Onset Anesthesia Problems No Family History Patient Allergies ALLERGIES No Known Allergies Current Medications Current Outpatient Medications on File Prior to Visit Medication Sig acetaminophen (TYLENOL EXTRA STRENGTH) 500 mg tablet Take 2 tablets by mouth every 8 hours as needed for pain. No current facility-administered medications on file prior to visit. Social History Social History Tobacco Use Smoking status: Former Smoker Packs/day: 1.00 Years: 50.00 Pack years: 50.00 Quit date: 10/2020 Years since quittin.1 Smokeless tobacco: Never Used Vaping Use Vaping Use: Never used Substance Use Topics Alcohol use: Not Currently Drug use: Never EXAM: There were no vitals taken for this visit. General Appearance: Well appearing, alert, in no acute distress, well-hydrated, well nourished. and Morbidly obese. Lungs: Lungs clear to auscultation. No wheezing, rhonchi, rales.. Heart: RRR without murmur, gallop, or rubs. No ectopy. Extremities: minimal edema. Genitalia: LArge left scrotal hydrocele Health Maintenance List ABDOMINAL AORTIC ANEURYSM SCREENING Never done DTAP,TDAP,TD(1 - Tdap) Never done LIPID SCREEN Never done COLORECTAL CANCER SCREENING Never done LUNG CANCER SCREENING Never done SHINGRIX VACCINE(1 of 2) Never done PROSTATE CANCER SCREENING DISCUSSION Never done PNEUMOCOCCAL: 65+(1 - PCV) Never done COVID-19 VACCINE(3 - Booster) due on 04/11/2021 ADVANCE DIRECTIVE DISCUSSION Never done HEPATITIS C SCREENING due on 05/21/2022 INFLUENZA(Season Ended) due on 03/28/2022 DEPRESSION SCREENING due on 05/21/2022 DIABETES SCREEN due on 04/10/2024 Data reviewed ASSESSMENT/PLAN: 1. Hydrocele in adult - ICD9: 603.9, ICD10: N43.3 (primary diagnosis) - HYDROCHLOROTHIAZIDE 25 MG TABLET 2. Status post hernia repair - ICD9: V45.89, ICD10: Z98.890, Z87.19 3. Elevated glucose - ICD9: 790.29, ICD10: R73.09 - COMP METABOLIC PANEL - HGB A1C 4. Anemia, unspecified type - ICD9: 285.9, ICD10: D64.9 - CBC - IRON + TIBC Will start on HCTZ Check labs and follow up in one month Discussed colonoscopy; will review after seeing labs and how his swelling does Medical Decision Making: Problems: Moderate: 2+ stable chronic illnesses Data: Unique test(s) ordered: 3+ Risk: Moderate: Drug management Medical Decision Making Level: 4 - Moderate Keanu Baldwin MD See other note Keanu Baldwin MD documented in this encounter [facility] 11-21-2021 History of Present illness Narrative ESTABLISHED PATIENT OFFICE VISIT HPI Ysuuf Up is a 66 year old male who presents refer for L Hydrocele. Had L inguinal hernia repair 04/17 for huge L inguinal hernia. L scrotal swelling has not dissipated. Ct showed large L hydrocele. No pain but very 11/20/21 - 6 weeks sp L hydrocele. Healed up well. Hydrocele itself has improved. However still has massive scrotal edema. Has B LE swelling as well. No luts. LAB: Creatinine Date Value Ref Range Status 04/10/2021 0.76 0.73 - 1.22 mg/dL Final No results found for: PSA Glucose, Urine (mg/dL) Date Value 03/30/2021 Negative Bilirubin, Urine (no units) Date Value 03/30/2021 Negative Ketones, Urine (no units) Date Value 03/30/2021 Negative Specific [place], Ur (no units) Date Value 03/30/2021 1.016 Hemoglobin/Blood,Ur ( ) Date Value 03/30/2021 Negative pH, Urine (no units) Date Value 03/30/2021 7.0 Protein, Urine (no units) Date Value 03/30/2021 Negative Nitrites (no units) Date Value 03/30/2021 Positive WBC, Urine (/HPF) Date Value 03/30/2021 0-5 MEDICATIONS: acetaminophen (TYLENOL EXTRA STRENGTH) 500 mg tablet Take 2 tablets by mouth every 8 hours as needed for pain. REVIEW OF SYSTEMS Review of Systems Constitutional: Negative. Respiratory: Negative. Cardiovascular: Negative. Gastrointestinal: Negative. Genitourinary: Negative. Skin: Negative. Neurological: Negative. Psychiatric/Behavioral: Negative. HISTORIES History reviewed. No pertinent past medical history. FAMILY HISTORY Problem Relation Age of Onset Anesthesia Problems No Family History SOCIAL HISTORY Social History Tobacco Use Smoking status: Former Smoker Packs/day: 1.00 Years: 50.00 Pack years: 50.00 Quit date: 10/2020 Years since quittin.0 Smokeless tobacco: Never Used Vaping Use Vaping Use: Never used Substance Use Topics Alcohol use: Not Currently Drug use: Never PHYSICAL EXAMINATION General appearance: Well appearing, alert, in no acute distress and well-hydrated, well nourished Skin: Skin color, texture, turgor normal, no suspicious rashes or lesions Respiratory:+ effort Cardiovascular: Not examined GI: Normal abdominal exam, Abdomen soft, non-tender. No masses, organomegaly Musculoskeletal: Negative Neuro: Negative Genitourinary: not examined Impression: (N43.0) Encysted hydrocele (primary encounter diagnosis) Plan: Fu with me 4-6 weeks rec see pcp regarding diuresis Baltazar Catalan Jr, MD 11/21/2021 documented in this encounter [facility] 10-05-2021 Note HNO ID: [id number] Author: Araceli Williamson RN Service: ? Author Type: Registered Nurse Type: Nursing Progress Note Filed: 10/05/2021 4:55 PM Note Text: Pt dressed self. Up to wheelchair. Stable gait. [facility] 10-05-2021 Note HNO ID: [id number] Author: Donovan Navas APRN.FRAUD ANALYST Service: Nursing Author Type: Nurse Second Chef Type: Anesthesia Procedure Notes Filed: 10/05/2021 2:52 PM Note Text: ANESTHESIOLOGY PROCEDURE NOTE Airway General Information Procedure Start Time/Medication Administration: 10/05/2021 2:42 PM Patient location during procedure: OR Timeout Performed Pre-procedure: timeout performed Consent Obtained: Yes Patient identity confirmed: arm band Staffing FRAUD ANALYST: Donovan Navas APRN.FRAUD ANALYST Performed by: SYLVIA Indications and Patient Condition Preoxygenated: yes Patient position: sniffing Manual In-Line Stabilization: No Difficult Mask: No Indications for airway management: anesthesia anesthesia circuit Method: asleep Cricoid Pressure: No Final Airway Details Final airway type: supraglottic airway Number of attempts at approach: 1 Final Supraglottic Airway: i-gel Size 5 Seal Adequate: yes SIGNATURE: Donovan Navas APRN.CRNA PATIENT NAME: Yusuf Up DATE: October 05, 2021 TIME: 2:51 PM CSN: [id number] [facility] documented as of this encounter (statuses as of 11/21/2021) [facility] History of Past illness Narrative* Problem Noted Date Resolved Date Inguinocrural hernia 04/04/2021 04/10/2021 documented as of this encounter (statuses as of 12/31/2021) [address]08-2021 History of Past illness Narrative* Problem Noted Date Resolved Date Inguinocrural hernia 04/04/2021 04/10/2021 documented as of this encounter (statuses as of 01/31/2022) [address]08-2021 History of Past illness Narrative* Problem Noted Date Resolved Date Inguinocrural hernia 04/04/2021 04/10/2021 documented as of this encounter (statuses as of 02/07/2022) [address]-2021 History of Past illness Narrative* Problem Noted Date Resolved Date Inguinocrural hernia 04/04/2021 04/10/2021 documented as of this encounter (statuses as of 02/19/2022) [address]08-2021 History of Past illness Narrative* Problem Noted Date Resolved Date Inguinocrural hernia 04/04/2021 04/10/2021 documented as of this encounter (statuses as of 12/03/2022) [address]08-2021 History of Past illness Narrative* Problem Noted Date Resolved Date Inguinocrural hernia 04/04/2021 04/10/2021 documented as of this encounter (statuses as of 01/15/2023) [address]08-2021 History of Past illness Narrative* Problem Noted Date Diagnosed Date Resolved Date Inguinocrural hernia 04/04/2021 021 documented as of this encounter (statuses as of 06/01/2023) [facility] note* Diagnosis Encysted hydrocele- Primary documented in this encounter [facility] note* Diagnosis Hydrocele in adult- Primary Status post hernia repair Other postprocedural status Elevated glucose Other abnormal glucose Anemia, unspecified type documented in this encounter [facility] note* Diagnosis Inguinal hernia without obstruction or gangrene, recurrence not specified, unspecified laterality- Primary Elevated glucose Other abnormal glucose Anemia, unspecified type documented in this encounter [facility] note* Diagnosis Encysted hydrocele- Primary documented in this encounter [facility] note* Diagnosis Hydrocele in adult- Primary Special screening for malignant neoplasms, colon Elevated glucose Other abnormal glucose Benign prostatic hyperplasia with nocturia Anemia, unspecified type Obesity, Class II, BMI 35-39.9 Obesity, unspecified documented in this encounter [facility] note* Diagnosis Special screening for malignant neoplasms, colon- Primary Obesity, Class III, BMI >= 40 Morbid obesity documented in this encounter [facility] for referral (narrative)* Outpatient Procedure (Routine) - Pending Review Specialty Diagnoses / Procedures Referred By Juancarlos scanlon Referred To Contact [facility] Diagnoses Special screening for malignant neoplasms, colon Procedures COLONOSCOPY SCREENING COLONOSCOPY FLX DX W/COLLJ SPEC WHEN Keanu Romero MD [address] [place] [address] [facility] [address] [place] [id number] Referral ID Status Reason Start Date Expiration Date Visits Requested Visits Authorized [id number] Pending Review Auto-Generat ed Referral 12/02/2022 12/03/2023 1 1 [facility] for referral (narrative)* Outpatient Procedure (Routine) - Closed Specialty Diagnoses / Procedures Referred By Juancarlos scanlon Referred To Contact [facility] Diagnoses Special screening for malignant neoplasms, colon Procedures COLONOSCOPY SCREENING COLONOSCOPY FLX DX W/COLLJ SPEC WHEN Keanu Romero MD [address] [place] [address] Abhishek Dias MD [address] [place] [address] Referral ID Status Reason Start Date Expiration Date V isits Requested Visits Authorized [id number] Closed Auto-Generate d Referral 01/03/2023 01/03/2023 1 1 [facility] for visit Narrative* Outpatient Procedure (Routine) - Closed Specialty Diagnoses / Procedures Referred By Juancarlos scanlon Referred To Contact [facility] Diagnoses Special screening for malignant neoplasms, colon Procedures COLONOSCOPY SCREENING COLONOSCOPY FLX DX W/COLLJ SPEC WHEN [facility] Keanu Baldwin MD [address] [place] [address] Abhishek Dias MD [address] [place] [address] Referral ID Status Reason Start Date Expiration Date V isits Requested Visits Authorized [id number] Closed Auto-Generate d Referral 01/03/2023 01/03/2023 [address] 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 Advance Directive(s) 10/05/2021 12:09 PM Advance Directive(s) 03/30/2021 11:20 AM Medications Administered Section Inactive Administered Medications - up to 3 most recent administrations Medication Order MAR Action Action Date Dose Rate Site fentaNYL 50 mcg/mL 25-100 mcg injection (SUBLIMAZE) 25-100 mcg, INTRAVENOUS, DIRECTED, Starting on Fri01/03/23 at 1300, Until Fri01/03/23 at 1659, DOSING DIRECTED BY PHYSICIAN FOR PROCEDURAL SEDATION ONLY, Intraprocedure Given by LIP 01/03/2023 12:45 PM EDT 25 mcg Additional Source Comments (unrecognized sect ion and content) No Status Records FoundNo Status Records FoundNo Status Records FoundNo Status Records Found INFORMATION SOURCE (unrecogn ized section and content) DATE CREATED AUTHOR AUTHOR'S ORGANIZ ATION 12/25/2020 [facility] DATE CREATED AUTHOR AUTHOR'S ORGANIZ ATION 10/11/2021 [facility] DATE CREATED AUTHOR AUTHOR'S ORGANIZ ATION 01/15/2023 [facility] Source Comments (unrecognize d section and content) In the event this informatio n is protected by the Federal Confidentiality of Alcohol and Drug Abuse Patient Records regulations: The Federal rules restrict any use of the information to criminally investigate or prosecute any alcohol or drug abuse patient.[facility] the event this information is protected by the Federal Confidentiality of Alcohol and Drug Abuse Patient Records regulations: The Federal rules restrict any use of the information to criminally investigate or prosecute any alcohol or drug abuse patient.[facility] the event this information is protected by the Federal Confidentiality of Alcohol and Drug Abuse Patient Records regulations: The Federal rules restrict any use of the information to criminally investigate or prosecute any alcohol or drug abuse patient.[facility] the event this information is protected by the Federal Confidentiality of Alcohol and Drug Abuse Patient Records regulations: The Federal rules restrict any use of the information to criminally investigate or prosecute any alcohol or drug abuse patient.[facility] the event this information is protected by the Federal Confidentiality of Alcohol and Drug Abuse Patient Records regulations: The Federal rules restrict any use of the information to criminally investigate or prosecute any alcohol or drug abuse patient.[facility] the event this information is protected by the Federal Confidentiality of Alcohol and Drug Abuse Patient Records regulations: The Federal rules restrict any use of the information to criminally investigate or prosecute any alcohol or drug abuse patient.[facility] Center[facility] the event this information is protected by the Federal Confidentiality of Alcohol and Drug Abuse Patient Records regulations: The Federal rules restrict any use of the information to criminally investigate or prosecute any alcohol or drug abuse patient.[facility] Center[facility] the event this information is protected by the Federal Confidentiality of Alcohol and Drug Abuse Patient Records regulations: The Federal rules restrict any use of the information to criminally investigate or prosecute any alcohol or drug abuse patient.[facility] Reason for Visit (unrecogniz ed section and content) Reason Comments 6 Month Exam Reason Comments F/U 1 month Reason Comments Results Reason Comments Established Patient 8 week follow up Reason Comments Physical Reason Comments Results Colonoscopy results Care Teams (unrecognized sec tion and content) [facility] Relationship Specialty Start Date End Date Keanu Baldwin MD [address] [place] [address] PCP - General Family Practice 05/21/21 [facility] Relationship Specialty Start Date End Date Keanu Baldwin MD [address] [place] [address] PCP - General Family Practice 05/21/21 [facility] Relationship Specialty Start Date End Date Keanu Baldwin MD [address] [place] [address] PCP - General Family Practice 05/21/21 [facility] Relationship Specialty Start Date End Date Keanu Baldwin MD [address] [place] [address] PCP - General Family Medicine 05/21/21 [facility] Relationship Specialty Start Date End Date Keanu Baldwin MD [address] [place] [address] PCP - General Family Medicine 05/21/21 [facility] Relationship Specialty Start Date End Date Keanu Baldwin MD [address] [place] [address] PCP - General Family Medicine 05/21/21 FOR RECORDS PERTAINING TO PATIENTS WHO ARE OR HAVE BEEN ENROLLED IN A CHEMICAL DEPENDENCY/SUBSTANCEABUSE PROGRAM, SOME INFORMATION MAY BE OMITTED. This clinical summary was aggregated from multiple sources. Caution should be exercised in using it in the provision of clinical care. This summary normalizes information from multiple sources, and as a consequence, information in this document may materially change the coding, format and clinical context of patient data. In addition, data may be omitted in some cases. CLINICAL DECISIONS SHOULD BE BASED ON THE PRIMARY CLINICAL RECORDS. [facility]. provides no warranty or guarantee of the accuracy or completeness of information in this document.
--- NOTE | 2023-08-04 10:06 | HP.PCM.HOS_ITS ---
HPI - General General Date of Admission: 08/04/23 Date of Service: 08/04/23 Chief Complaint: Worsening shortness of breath HPI Narrative GENI MILLER, is a 67 M who presented to [facility] ED on 08/04/2023 with worsening shortness of breath. Patient seen at bedside in the ED. Patient was sitting fairly comfortably in bed, had received a breathing treatment shortly before my arrival and stated that his work of breathing has significantly improved after this treatment. Currently satting in low 90s on 4 L nasal cannula. Patient states that he is never had an episode like this before. Patient is a long time smoker but quit smoking about 3 years ago. Has no formal diagnosis of COPD. Patient lives at home with his , states that she was diagnosed with COVID fairly recently. Patient has minimal past medical history, states he is fairly healthy at baseline. Is able to do all things around the house from self without issue. States he had a dry cough with worsening shortness of breath starting 2 to 3 days ago. Developed wheezing over the last day or so, which prompted him to come in for further evaluation. Denies any fevers or chills. Denies any leg pain or swelling. Denies any recent travel or immobilization. Denies hemoptysis. No other acute concerns at this time. [facility] Medical History Left inguinal hernia Perforated, severe stomach ulcer Home Medications hydrochlorothiazide 25 mg tablet 25 mg PO DAILY BLOOD PRESSURE 08/04/23 [History Last Taken 08/03/23] tamsulosin 0.4 mg capsule 0.4 mg PO QHS PROSTATE 08/04/23 [History Last Taken 08/03/23] Allergy/AdvReac Type Severity Reaction Status Date / Time No Known Allergies Allergy Verified 08/04/23 08:19 Social History Smoking Status: Former smoker alcohol intake: never ROS Constitutional Constitutional: Reports fatigue; Denies change in weight, chills, fever(s) or weakness Eyes Eyes: Denies change in vision ENT HEENT: Denies dysphagia Cardiovascular Cardiovascular: Denies chest pain, edema or lightheadedness Respiratory/Chest Respiratory/Chest: Reports cough, dyspnea, shortness of breath at rest, shortne ss of breath with exertion and wheezing; Denies hemoptysis or productive cough Gastrointestinal Gastrointestinal: Denies abdominal pain, constipation, diarrhea, nausea or vomiting Genitourinary Genitourinary: Denies dysuria Musculoskeletal Musculoskeletal: Denies arthralgias or back pain Neurologic Neurologic: Denies dizziness, focal weakness or headache(s) Vital Signs Vital Signs Vital Signs: 08/04/23 08:19 08/04/23 08:22 08/04/23 08:20 Temperature 99.4 F H Temperature Source Oral Pulse Rate 105 H Respiratory Rate 32 H Respiratory Effort Normal Respiratory Depth Normal Respiratory Pattern Normal Blood Pressure 174/115 H Blood Pressure Mean 134 Pulse Ox 78 97 Oxygen Delivery Method Room Air Room Air Nasal Cannula Oxygen Flow Rate (L/min) 6 6 08/04/23 08:46 08/04/23 08:46 Temperature Temperature Source Pulse Rate 104 H Respiratory Rate 26 H Respiratory Effort Respiratory Depth Respiratory Pattern Tachypnea Blood Pressure Blood Pressure Mean Pulse Ox 97 Oxygen Delivery Method Nasal Cannula Oxygen Flow Rate (L/min) 4 Weight Weight: 135.7 kg Body Mass Index (BMI) 40.6 Physical Exam Const alert, oriented x3, no apparent distress and average body habitus Constitutional Narrative: Pleasant elderly male, morbidly obese, sitting up comfortably in bed, conversing normally, no acute distress. General Appearance: cooperative and comfortable HEENT normocephalic, head/scalp atraumatic, hearing grossly normal bilaterally and nasal mucous membranes and turbinates normal Eyes PERRL, EOMs intact bilaterally and conjunctivae normal Neck full ROM, no lymphadenopathy and supple Lymph Lymphatic: no lymphadenopathy noted Chest inspection of chest normal Resp normal respiratory effort and no use of accessory muscles Resp Narrative: Satting in low to mid 90s on 4 L nasal cannula, no increased work of breathing noted. Mild wheezing noted in upper airways bilaterally, crackles noted in bases bilaterally, mildly decreased breath sounds throughout. Cardio regular rate, regular rhythm, no murmurs and peripheral pulses 2+ throughout GI normal to inspection, nondistended, normoactive bowel sounds, soft to palpation, non-tender and non-distended Back/Spine normal ROM Extremity normal to inspection, full ROM and no pedal edema Skin no rashes or lesions noted Neuro moves all extremities and no focal motor deficits Speech: speech normal Psych mental status grossly normal Results Lab / Micro Data 08/04/23 08:21 08/04/23 08:21 Labs: Laboratory Results - last 24 hr 08/04/23 08:21: WBC 8.3, RBC 4.78, Hgb 15.6, Hct 48.3, MCV 101.0 H, MCH 32.6 H, MCHC 32.3, RDW Std Deviation 48.2 H, RDW Coeff of Huey 12.9, Plt Count 189, MPV 10.6, Immature Gran % (Auto) 0.400, Neut % (Auto) 82.6 H, Lymph % (Auto) 7.4 L, [place] % (Auto) 8.8, Eos % (Auto) 0.4, Baso % (Auto) 0.4, Absolute Neuts (auto) 6.9, Absolute Lymphs (auto) 0.61 L, Nucleated RBC % 0, Sodium 136, Potassium 4.0, Chloride 100, Carbon Dioxide 32.0, Anion Gap 4 L, BUN 12, Creatinine 0.90, Estim Creat Clear Calc 86.22, Est GFR (MDRD) Af Amer 107, Est GFR (MDRD) Non-Af 89, BUN/Creatinine Ratio 13.3, Glucose 145 H, Calcium 9.2, Troponin I High Sens 21 Micro: Microbiology 08/04/23 08:21 Mucosa - Nose SARS-CoV-2, Influenza & RSV (PCR) - Final RSV ABG Data ABG results: ABG 08/04/23 08:28 Specimen Type CELIA Sample Site Not entered O2 % 6.0 VBG pH 7.30 L VBG pO2 41 H VBG HCO3 31 H VBG Total CO2 33 VBG O2 Sat (Calc) 68 VBG Base Excess 5 H POC Mix VBG pCO2 Pt Tmp 64.4 H O2 Delivery Device Cannula Rhythm Strip Rhythm Strip: Sinus Tach Rate: 106 Ectopy: PVC(s) Imagaing Radiology Impression Chest X-Ray 08/04/23 08:34 IMPRESSION: No active or acute cardiopulmonary disease. Electronically Signed: Anand Spaulding MD at 9:31 EST , Assessment & Plan Assessment/Plan (1) COPD exacerbation: (2) Hypoxia: (3) RSV bronchitis: PLAN: Plan Patient is a 67-year-old male who presented to [facility] ED on 08/04/2023 with worsening shortness of breath. 1. Acute exacerbation of COPD with hypoxia secondary to RSV infection, concern for underlying heart failure No formal diagnosis of COPD, but suspect patient has COPD given extensive smoking history. RSV positive in ED. Chest x-ray mild vascular congestion, cardiomegaly noted. Patient with significant wheezing on exam on admit. Not on home O2, requiring up to 6 L nasal cannula in the ED at rest. ? Admit under observation status to PCU. Treat COPD exacerbation with IV steroids, scheduled DuoNebs for now. Sputum culture ordered. Lower concern for superimposed bacterial infection, hold on antibiotics for now. Echo ordered. Will likely need home O2 evaluation prior to discharge. Chronic medical conditions: ? Morbid obesity: BMI 55 on admit. Encouraged lifestyle modifications. Complicates hospital course, care and prognosis. ? Hypertension: Continue home hydrochlorothiazide with IV hydralazine as needed. ? BPH with obstructive symptoms: Continue home Flomax. ? History of tobacco use DVT prophylaxis: Lovenox CODE STATUS: Full code, verified Expected disposition: Home, 1 to 2 days Total clinical time spent by myself addressing the patient's medical issues, reviewing all the data, and collaborating with patient's care team: 55 minutes. Charges/Coding Visit Charges Inpatient E&M: 57868 Init Hosp L2
--- OUTSIDE RECORDS SUMMARY | 2023-08-04 10:54 | XMS RPT_ITS | CCD ---
Author Name Unknown Address [address] [place] [address] Organization [facility] Care Team Providers Care Prosthetic Makeup Designer Name Role Phone Keanu Baldwin MD Primary Care Provider [phone] KEANU BALDWIN Primary Care Unavailable BALTAZAR CATALAN JR Attending UnavailBALTAZAR Santiago JR Referring UnavailKEANU Perez Referring Unavailable KEANU BALDWIN Primary Care Unavailable KEANU BALDWIN Attending Unavailable KEANU BALDWIN Primary Care Unavailable KEANU BALDWIN Referring Unavailable KEANU BALDWIN Primary Care Unavailable ABHISHEK DIAS Attending Unavailable [...] 78 mm[Hg] Abhishek Dias MD Work Phone: [facility] 01-03-2023 13:40-0400 Heart rate 66 /min Abhishek Dias MD Work Phone: [facility] 01-03-2023 13:40-0400 Respiratory rate 18 /min Abhishek Dias MD Work Phone: [facility] 01-03-2023 13:40-0400 SaO2% (BldA) [Mass fraction] 97 % Abhishek Dias MD Work Phone: [facility] 01-03-2023 13:40-0400 Systolic blood pressure 150 mm[Hg] Abhishek Dias MD Work Phone: [facility] 01-03-2023 11:31-0400 Body temperature 97.81 [degF] Abhishek Dias MD Work Phone: [facility] 12-02-2022 16:48-0400 Body height 175.3 cm Keanu Baldwin MD Work Phone: [facility] 12-02-2022 16:48-0400 Body weight 136.62 kg Keanu Baldwin MD Work Phone: [facility] 12-02-2022 16:48-0400 Diastolic blood pressure 92 mm[Hg] Keanu Baldwin MD Work Phone: [facility] 12-02-2022 16:48-0400 Heart rate 78 /min Keanu Baldwin MD Work Phone: [facility] 12-02-2022 16:48-0400 Respiratory rate 16 /min Keanu Baldwin MD Work Phone: [facility] 12-02-2022 16:48-0400 Systolic blood pressure 160 mm[Hg] Keanu Baldwin MD Work Phone: [facility] 02-19-2022 11:17-0400 Body height 175.3 cm Baltazar Catalan Jr., MD Work Phone: [facility] 02-19-2022 11:17-0400 Body weight 126.55 kg Baltazar Catalan Jr., MD Work Phone: [facility] 01-31-2022 10:48-0400 Body weight 127.28 kg Keanu Baldwin MD Work Phone: [facility] 01-31-2022 10:48-0400 Diastolic blood pressure 78 mm[Hg] Keanu Baldwin MD Work Phone: [facility] 01-31-2022 10:48-0400 Heart rate 68 /min Keanu Baldwin MD Work Phone: [facility] 01-31-2022 10:48-0400 Respiratory rate 16 /min Keanu Baldwin MD Work Phone: [facility] 01-31-2022 10:48-0400 Systolic blood pressure 130 mm[Hg] Keanu Baldwin MD Work Phone: [facility] 12-31-2021 15:23-0400 Body weight 130.18 kg Keanu Baldwin MD Work Phone: [facility] 12-31-2021 15:23-0400 Diastolic blood pressure 88 mm[Hg] Keanu Baldwin MD Work Phone: [facility] 12-31-2021 15:23-0400 Heart rate 64 /min Keanu Baldwin MD Work Phone: [facility] 12-31-2021 15:23-0400 Respiratory rate 20 /min Keanu Baldwin MD Work Phone: [facility] 12-31-2021 15:23-0400 SaO2% (BldA) [Mass fraction] 95 % Keanu Baldwin MD Work Phone: [facility] 12-31-2021 15:23-0400 Systolic blood pressure 140 mm[Hg] Keanu Baldwin MD Work Phone: [facility] 11-20-2021 13:35-0400 Body height 176.5 cm Baltazar Catalan Jr., MD Work Phone: [facility] 11-20-2021 13:35-0400 Body weight 123.83 kg Baltazar Catalan Jr., MD Work Phone: [facility] Encounters Encounter Date Encounter Type Care Provider [...] panel - Serum or Plasma Lipid Screening [facility] Start: 12-07-2027 LIPID SCREEN LIPID SCREEN [facility] Start: 12-07-2027 PROSTATE CANCER SCREENING DISCUSSION PROSTATE CANCER SCREENING DISCUSSION [facility] Start: 01-03-2026 Colonoscopy COLONOSCOPY [facility] Start: 01-03-2026 COLORECTAL CANCER SCREENING COLORECTAL CANCER SCREENING [facility] Start: 12-06-2025 DIABETES SCREEN DIABETES SCREEN [facility] Start: 12-06-2025 Diabetes Screening Diabetes Screening [facility] Start: 01-31-2025 DIABETES SCREEN DIABETES SCREEN [facility] Start: 04-10-2024 DIABETES SCREEN DIABETES SCREEN [facility] Start: 06-04-2023 End: 08-04-2023 Comprehensive metabolic 2000 panel - Serum or Plasma COMP METABOLIC PANEL Lab Routine Elevated glucose Expected: 06/04/2023 (Approximate), Expires: 08/04/2023 [facility] Work Phone: Immunizations Immunization Date Immunization Notes Care Provider Fa cili 04-23-2021 COVID-19 vaccine, booster dose (MODERNA) Keanu Baldwin MD Work Phone: [facility] 11-09-2020 COVID-19 vaccine, fu ll dose (MODERNA) Baltazar Catalan Jr., MD Work Phone: [facility] 10-26-2020 COVID-19 vaccine, fu ll dose (MODERNA) Baltazar Catalan Jr., MD Work Phone: [facility] Payers Date Payer Category Payer Medicare [facility] AARP MEDICAR E [facility] AARP MEDICARE PPO [id number] 2022-Present [phone] [address] [address] [place] [address] PPO [id number] 2022 Medicare [id number] 2019 Medicare [id number] 2019 Medicare [id number] 2019 Medicare [id number] 2019 Unknown ANTHEM ANTHEM ME DICARE SUPPLEMENT [id number] 2019-Present [phone] [address] [place] [address] Indemnity [id number] Social History Date Type Detail Facility Start: 01-25-2021 End: 12-02-2022 Tobacco smoking status NHIS Ex-smoker [facility] End: 10-26-2020 History of tobacco use Current smoker [facility] Start: 01-25-2021 End: 12-02-2022 Cigarettes smoked current (pack per day) - Reported 1 [facility] Work Phone: Start: 01-25-2021 End: 12-02-2022 Tobacco use and exposure Smokeless tobacco non-user [facility] Start: 11-20-2021 End: 01-03-2023 Alcohol intake Ex-drinker (finding) [facility] Start: 1955 Sex Assigned At Not on file [facility] Start: 11-10-2021 End: 02-19-2022 Exposure to SARS-CoV-2 (event) Not sure [facility] End: 10-26-2020 History of tobacco use Cigarette Smoker [facility] Start: 12-02-2022 End: 01-03-2023 Tobacco use panel [facility] Work Phone: Adult Depression Screening Assessment 0 [facility] Work Phone: Medical Equipment Procedure Code Equipment Code Equipment Origin al Text Equipment Identifier Dates Mesh Prolene Squ are Flat [id number] Surgical Knit Nonabsorbable Nonreactive - [id number] Start: 04-04-2021 Clinical Notes 04-04-2021 to [...] Meera Kirk RN documented in this encounter [facility] 01-03-2023 Note HNO ID: [id number] Author: Christine Johns RN Service: ? Author Type: Registered Nurse Type: Nursing Progress Note Filed: 01/03/2023 1:22 PM Note Text: Abdomen soft non-distended. Will continue to monitor. [facility] 01-03-2023 Nurse Note Abdomen soft non-distended. Will continue to monitor. documented in this encounter [facility] 01-03-2023 History and physical note PROCEDURAL SEDATION [...] TIME: 12:34 PM documented in this encounter [facility] 12-03-2022 Note HNO ID: [id number] Author: Mikel Cabrera Service: ? Author Type: ? Type: Progress Notes Filed: 12/03/2022 12:43 PM Note Text: Patients answered and stated he will call back, will reach out in a week or 2 if not scheduled colonoscopy by then. GABBI 12/03 [facility] 12-02-2022 Note HNO ID: [id number] Author: Keanu Baldwin MD Service: ? Author [...] Past Histories independently gathered by the clinical senior technical support engineer and the remaining scribed note accurately describes [...] Ma WSTR OPEN (more content not included)... [facility] 12-02-2022 History of Present illness Narrative Chief [...] Past Histories independently gathered by the clinical senior technical support engineer and the remaining scribed note accurately describes [...] Please send all open access questionnaires to [facility] Pool #[id number] documented in this encounter [facility] 02-19-2022 Note HNO ID: [id number] Author: Baltazar Catalan Jr., MD Service: ? [...] (no units) Date Value 03/30/2021 Negative Specific [place], Ur (no units) Date Value 03/30/2021 1.016 [...] Plan: prn Baltazar Catalan Jr, MD 02/19/2022 [facility] 02-19-2022 History of Present illness Narrative ESTABLISHED [...] (no units) Date Value 03/30/2021 Negative Specific [place], Ur (no units) Date Value 03/30/2021 1.016 [...] Jr, MD 02/19/2022 documented in this encounter [facility] 02-07-2022 Miscellaneous Notes Letter mailed to pt home of results. Joellen Epps MA Please notify patient that his lab results from last week look OK; his A1c is a little high at 6.2, so continue to work on diet and losing some weight. His blood count is normal. I would suggest follow up in 6 months. Keanu Baldwin MD documented in this encounter [facility] 01-31-2022 Note HNO ID: [id number] Author: Keanu Baldwin MD Service: ? Author [...] Past Histories independently gathered by the clinical senior technical support engineer and the remaining scribed note accurately describes [...] 31, 2022 10:50 AM. Joellen Epps Ma [facility] 01-31-2022 History of Present illness Narrative Chief [...] Past Histories independently gathered by the clinical senior technical support engineer and the remaining scribed note accurately describes [...] Joellen Epps Ma documented in this encounter [facility] 12-31-2021 History of Present illness Narrative Chief [...] Keanu Baldwin MD documented in this encounter [facility] 11-21-2021 History of Present illness Narrative ESTABLISHED [...] (no units) Date Value 03/30/2021 Negative Specific [place], Ur (no units) Date Value 03/30/2021 1.016 [...] Jr, MD 11/21/2021 documented in this encounter [facility] 10-05-2021 Note HNO ID: [id number] Author: Araceli Williamson RN Service: ? Author Type: Registered Nurse Type: Nursing Progress Note Filed: 10/05/2021 4:55 PM Note Text: Pt dressed self. Up to wheelchair. Stable gait. [facility] 10-05-2021 Note HNO ID: [id number] Author: Donovan Navas APRN.IT ADMINISTRATOR Service: Nursing Author Type: Nurse Letterset Press Set Up Operator Type: Anesthesia Procedure Notes Filed: 10/05/2021 2:52 PM Note Text: ANESTHESIOLOGY PROCEDURE NOTE Airway General Information Procedure Start Time/Medication Administration: 10/05/2021 2:42 PM Patient location during procedure: OR Timeout Performed Pre-procedure: timeout performed Consent Obtained: Yes Patient identity confirmed: arm band Staffing IT ADMINISTRATOR: Donovan Navas APRN.IT ADMINISTRATOR Performed by: SYLVIA Indications and Patient Condition [...] October 05, 2021 TIME: 2:51 PM CSN: [id number] [facility] documented as of this encounter (statuses as of 11/21/2021) [facility]09-08-2021 History of Past illness Narrative* Problem Noted Date Resolved Date Inguinocrural hernia 04/04/2021 04/10/2021 documented as of this encounter (statuses as of 12/31/2021) [address]08-2021 History of Past illness Narrative* Problem Noted Date Resolved Date Inguinocrural hernia 04/04/2021 04/10/2021 documented as of this encounter (statuses as of 01/31/2022) [address]-2021 History of Past illness Narrative* Problem Noted Date Resolved Date Inguinocrural hernia 04/04/2021 04/10/2021 documented as of this encounter (statuses as of 02/07/2022) [address]-2021 History of Past illness Narrative* Problem Noted Date Resolved Date Inguinocrural hernia 04/04/2021 04/10/2021 documented as of this encounter (statuses as of 02/19/2022) [address]-2021 History of Past illness Narrative* Problem Noted Date Resolved Date Inguinocrural hernia 04/04/2021 04/10/2021 documented as of this encounter (statuses as of 12/03/2022) [address]08-2021 History of Past illness Narrative* Problem Noted Date Resolved Date Inguinocrural hernia 04/04/2021 04/10/2021 documented as of this encounter (statuses as of 01/15/2023) [address]-2021 History of Past illness Narrative* Problem Noted Date Diagnosed Date Resolved Date Inguinocrural hernia 04/04/2021 021 documented as of this encounter (statuses as of 06/01/2023) [facility] note* Diagnosis Encysted hydrocele- Primary documented in this encounter [facility] note* Diagnosis Hydrocele in adult- Primary Status post hernia repair Other postprocedural status Elevated glucose Other abnormal glucose Anemia, unspecified type documented in this encounter [facility] note* Diagnosis Inguinal hernia without obstruction or gangrene, recurrence not specified, unspecified laterality- Primary Elevated glucose Other abnormal glucose Anemia, unspecified type documented in this encounter [facility] note* Diagnosis Encysted hydrocele- Primary documented in this encounter [facility] note* Diagnosis Hydrocele in adult- Primary Special screening for malignant neoplasms, colon Elevated glucose Other abnormal glucose Benign prostatic hyperplasia with nocturia Anemia, unspecified type Obesity, Class II, BMI 35-39.9 Obesity, unspecified documented in this encounter [facility] note* Diagnosis Special screening for malignant neoplasms, colon- Primary Obesity, Class III, BMI >= 40 Morbid obesity documented in this encounter [facility] for referral (narrative)* Outpatient Procedure (Routine) - Pending Review Specialty Diagnoses / Procedures Referred By Juancarlos scanlon Referred To Contact [facility] Diagnoses Special screening for malignant neoplasms, colon Procedures COLONOSCOPY SCREENING COLONOSCOPY FLX DX W/COLLJ SPEC WHEN Keanu Romero MD [address] [place] [address] [facility] [place] [address] [place] [id number] Referral ID Status Reason Start Date Expiration Date Visits Requested Visits Authorized [id number] Pending Review Auto-Generat ed Referral 12/02/2022 12/03/[address] [facility] for referral (narrative)* Outpatient Procedure (Routine) - Closed Specialty Diagnoses / Procedures Referred By Juancarlos scanlon Referred To Contact [facility] Diagnoses Special screening for malignant neoplasms, colon Procedures COLONOSCOPY SCREENING COLONOSCOPY FLX DX W/COLLJ SPEC WHEN Keanu Romero MD [address] [place] [address] Abhishek Dias MD [address] [place] [address] Referral ID Status Reason Start Date Expiration Date V isits Requested Visits Authorized [id number] Closed Auto-Generate d Referral 01/03/2023 01/03/[address] [facility] for visit Narrative* Outpatient Procedure (Routine) - Closed Specialty Diagnoses / Procedures Referred By Juancarlos scanlon Referred To Contact [facility] Diagnoses Special screening for malignant neoplasms, colon Procedures COLONOSCOPY SCREENING COLONOSCOPY FLX DX W/COLLJ SPEC WHEN [facility] Keanu Baldwin MD [address] [place] [address] Abhishek Dias MD [address] [facility] [place] [place] [address] Referral ID Status Reason Start Date Expiration Date V isits Requested Visits Authorized [id number] Closed Auto-Generate d Referral 01/03/2023 01/03/2023 1 1 [facility] Summary Purpose Family History No Family History Records FoundNo Family History Records FoundNo Family History Records FoundNo Family History Records Found Advance Directives Documents on File Type Date Recorded 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 Expl 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 Advance Directive(s) 10/05/2021 12:09 PM [...] DATE CREATED AUTHOR AUTHOR'S ORGANIZ ATION 12/25/2020 [facility] DATE CREATED AUTHOR AUTHOR'S ORGANIZ ATION 10/11/2021 [facility] DATE CREATED AUTHOR AUTHOR'S ORGANIZ ATION 01/15/2023 [facility] Source Comments (unrecognize d section and content) In the event this informatio n is protected by the Federal Confidentiality of Alcohol and Drug Abuse Patient Records regulations: The Federal rules restrict any use of the information to criminally investigate or prosecute any alcohol or drug abuse patient.[facility] the event this information is protected by the Federal Confidentiality of Alcohol and Drug Abuse Patient Records regulations: The Federal rules restrict any use of the information to criminally investigate or prosecute any alcohol or drug abuse patient.[facility] the event this information is protected by the Federal Confidentiality of Alcohol and Drug Abuse Patient Records regulations: The Federal rules restrict any use of the information to criminally investigate or prosecute any alcohol or drug abuse patient.[facility] the event this information is protected by the Federal Confidentiality of Alcohol and Drug Abuse Patient Records regulations: The Federal rules restrict any use of the information to criminally investigate or prosecute any alcohol or drug abuse patient.[facility] the event this information is protected by the Federal Confidentiality of Alcohol and Drug Abuse Patient Records regulations: The Federal rules restrict any use of the information to criminally investigate or prosecute any alcohol or drug abuse patient.[facility] the event this information is protected by the Federal Confidentiality of Alcohol and Drug Abuse Patient Records regulations: The Federal rules restrict any use of the information to criminally investigate or prosecute any alcohol or drug abuse patient.[facility] the event this information is protected by the Federal Confidentiality of Alcohol and Drug Abuse Patient Records regulations: The Federal rules restrict any use of the information to criminally investigate or prosecute any alcohol or drug abuse patient.[facility] the event this information is protected by the Federal Confidentiality of Alcohol and Drug Abuse Patient Records regulations: The Federal rules restrict any use of the information to criminally investigate or prosecute any alcohol or drug abuse patient.[facility] Reason for Visit (unrecogniz ed section and content) Reason Comments 6 Month Exam Reason Comments F/U 1 month Reason Comments Results Reason Comments Established Patient 8 week follow up Reason Comments Physical Reason Comments Results Colonoscopy results Care Teams (unrecognized sec tion and content) Prosthetic Makeup Designer Relationship Specialty Start Date End Date Keanu Baldwin MD [address] [place] [address] PCP - General Family Practice 05/21/21 Prosthetic Makeup Designer Relationship Specialty Start Date End Date Keanu Baldwin MD [address] [place] [address] PCP - General Family Practice 05/21/21 Prosthetic Makeup Designer Relationship Specialty Start Date End Date Keanu Baldwin MD [address] [place] [address] PCP - General Family Practice 05/21/21 Prosthetic Makeup Designer Relationship Specialty Start Date End Date Keanu Baldwin MD [address] [place] [address] PCP - General Family Medicine 05/21/21 Prosthetic Makeup Designer Relationship Specialty Start Date End Date Keanu Baldwin MD [address] [place] [address] PCP - General Family Medicine 05/21/21 Prosthetic Makeup Designer Relationship Specialty Start Date End Date Keanu Baldwin MD [address] [place] [address] PCP - General Family Medicine 05/21/21 FOR [...] BE BASED ON THE PRIMARY CLINICAL RECORDS. [facility]. provides no warranty or guarantee of the accuracy or completeness of information in this document.
[2023-08-04 11:01] LABS: Hemoglobin A1c 5.9 % (3.8-5.6)
[2023-08-04] MEDS: hydroCHLOROthiazide 25 MG Tablet PO (12:31)
[2023-08-04] MEDS: 0.9% Saline Lock 10 ML Syringe IV ×2 (12:32→23:21)
--- NOTE | 2023-08-04 19:24 | ECHOCS_ITS ---
Reason For Study: HTN Procedure This was a 2D Doppler, Color Flow transthoracic echocardiogram. The study was technically difficult. Contrast injection was performed. Exam performed portable in patient room. Left Ventricle Normal LV size. Left ventricular systolic function is hyperdynamic. The left ventricular ejection fraction is 70 %. Stage 1 diastolic dysfunction. No regional wall motion abnormalities noted. Right Ventricle Normal RV size. Normal systolic function. Atria Normal left atrium. Normal right atrium. Mitral Valve Normal mitral valve. Tricuspid Valve Normal tricuspid valve. Aortic Valve The aortic valve is not well visualized. Pulmonic Valve The pulmonic valve is not well visualized. Great Vessels Normal aortic root. The pulmonary artery is normal size. Normal inferior vena cava. Pericardium/Pleural No pericardial effusion. Medication Diluted definity 3ml given slow IV push to enhance endocardial definition. MMode/2D Measurements & Calculations RVDd: 3.7 cm LA dimension: 4.4 cm LAV(MOD-bp): 56.8 ml LAV(MOD-bp) Indexed: 24.3 ml/m2 LAV(MOD-sp2): 67.4 ml LAV(MOD-sp4): 35.6 ml TAPSE: 2.5 cm LA A4 area: 14.3 cm2 RA A4 area: 15.2 cm2 Time Measurements MV dec time: 0.33 sec Doppler Measurements & Calculations MV E max bubba: 86.9 cm/sec Lat Peak E' Bubba: 12.5 cm/sec Med Peak E' Bubba: 9.8 cm/sec MV A max bubba: 117.3 cm/sec E/E' lat: 7.0 E/E' med: 8.9 MV E/A: 0.74 MV V2 max: 118.0 cm/sec MV P1/2t max bubba: 93.7 cm/sec Ao V2 max: 151.9 cm/sec MV max P.6 mmHg MV P1/2t: 108.4 msec Ao max P.2 mmHg MV V2 mean: 66.1 cm/sec MV mean P.0 mmHg MV dec slope: 253.4 cm/sec2 MV V2 VTI: 29.7 cm MVA(P1/2t): 2.0 cm2 LV V1 max: 128.2 cm/sec PA V2 max: 105.3 cm/sec LV V1 max P.6 mmHg ECHO/Echo Complete W/ Contrast Interpretation Summary Normal LV size. Left ventricular systolic function is hyperdynamic. The left ventricular ejection fraction is 70 %. No regional wall motion abnormalities noted. Stage 1 diastolic dysfunction. Contrast injection was performed. Ordering Physician: Tera Askew Performed By: Mario Nj RCS
[2023-08-04 21:12] LABS: BNP,B-Type NATRIURETIC PEPTIDE 64.4 pg/mL (0-100)
[2023-08-04] MEDS: Tamsulosin HCl 0.4 MG Capsule 0.400000000000000022 MG PO (23:21)
[2023-08-05] VITALS (9 sets, daily range): BP systolic 127–154; BP diastolic 73–99; PULSE 72–98; RESP 15–22; TEMP 36.3–36.8; O2SAT 92–94
[2023-08-05] MEDS: Ipratropium/Albuterol Sulfate 3 ML AMPUL.NEB INHALATION ×5 (01:45→19:49)
[2023-08-05 06:02] LABS: Hematocrit 41.9 % (40-54); Hemoglobin 13.4 g/dL (13.0-16.5); Mean Corpuscular Hgb 32.6 pg (27.0-32.0); Mean Corpuscular Volume 101.9 fL (80-94); Mean Platelet Vol. 9.5 fl (6.2-12.0); Platelet Count 192 K/mm3 (150-450); RBC Distribution Width SD 48.6 fl (35.1-43.9); Red Blood Count 4.11 M/mm3 (4.6-6.2); White Blood Count 7.3 K/mm3 (4.4-11.0)
[2023-08-05 06:48] LABS: Anion Gap 4 (5-15); BUN 20 mg/dL (7-18); BUN/Creat Ratio 21.3 RATIO (10-20); Calcium,Total 8.2 mg/dL (8.5-10.1); Chloride 99 mmol/L (98-107); Creatinine, Serum 0.94 mg/dL (0.70-1.30); EST Glomerular Filtration Rate 85 mL/min (>60); Est Glom Filt Rate - Afr Amer 103 mL/min (>60); Estimated Creatinine Clearance 55.64 ml/min; Glucose 184 mg/dL (74-106); Potassium 3.9 mmol/L (3.5-5.1); Sodium Level 138 mmol/L (136-145)
--- NOTE | 2023-08-05 10:23 | CASEMGMT ---
Spoke with patient d/t isolation?to complete OLGUIN form. OLGUIN form explained to?paitient who voiced understanding and signed form. Original form placed in pt?s chart and copy provided to?patient. Sol Valerio, Discharge Planning Asst
[2023-08-05] MEDS: hydroCHLOROthiazide 25 MG Tablet PO (10:38)
--- NOTE | 2023-08-05 10:45 | CASEMGMT ---
RN CM Face to Face with patient for initial transition planning/care coordination assessment. RN CM introduced self and role at [facility]. Patient lying in bed, alert and oriented. Patient willing to participate in assessment and is able to answer all questions appropriately. Care providers, pharmacy, and demographics verified. Patient wishes to discharge home, denies need for home health at this time. Patient states he has no further needs or concerns at this time. CM to follow for discharge planning needs that may arise. PCP: Eddy Specialists: none Preferred Pharmacy: [facility]; [facility] Retail Insurance: [employer] [facility] Prescription Benefit: yes Living Will/HPOA: none LNOK: Living Arrangements: Patient lives with in a 2 story home with bed and bath on first floor, 2 steps and railing to enter. Patient is independent at home. Transportation: self, DME/HHC: Patient has shower chair and walker at home. No previous HHC or SNF. Will monitor for home oxygen. Patient prefers [facility]. Disposition Plan: Patient to discharge home with family support and follow-up plans in place. Radha CHOWDARY, RN, CM
[2023-08-05] MEDS: 0.9% Saline Lock 10 ML Syringe IV (14:39)
[2023-08-05] MEDS: Furosemide 40 MG/4 ML Vial IV ×2 (15:31→17:56)
--- NOTE | 2023-08-05 16:28 | PCM.PN.HOSP ---
Reason for Visit Reason for Visit: Diagnoses Acute bronchitis due to respiratory syncytial virus (08/04/23) Chronic obstructive pulmonary disease with (acute) exacerbation (08/04/23) Hypoxemia (08/04/23) Subjective Subjective Patient seen at bedside this morning. Was having breathing treatment done with respiratory therapy during the interview. States he feels mildly improved from yesterday. Still having fairly significant sputum production, states sputum is a yellowish-greenish color. States the breathing treatments at been helpful for him. Denies any shortness of breath at rest. Has not been getting up and walking around much since being admitted. No other acute concerns this time. Objective Data Objective Data Vital Signs: Vital Signs Temp Pulse Resp BP Pulse Ox O2 Del Method O2 Flow Rate 97.9 F 90 18 154/89 H 94 Nasal Cannula 4 08/05/23 14:35 08/05/23 15:21 08/05/23 15:21 08/05/23 14:35 08/05/23 14:35 08/05/23 14:35 08/05/23 14:35 Oxygen Flow Rate (L/min) 4 Oxygen Delivery Method Nasal Cannula Weight: 134.6 kg Body Mass Index (BMI) 55.7 Intake & Output: Intake and Output for Last 24 Hours 08/03/23 08/04/23 08/05/23 23:59 23:59 23:59 Intake Total 750 / 750 Balance 750 / 750 Lab / Micro Data 08/05/23 05:33 08/05/23 05:33 Labs: Laboratory Results - last 24 hr 08/04/23 08:21: B-Natriuretic Peptide 64.4 08/05/23 05:33: WBC 7.3, RBC 4.11 L, Hgb 13.4, Hct 41.9, MCV 101.9 H, MCH 32.6 H, MCHC 32.0, RDW Std Deviation 48.6 H, RDW Coeff of Huey 13.0, Plt Count 192, MPV 9.5, Sodium 138, Potassium 3.9, Chloride 99, Carbon Dioxide 35.0 H, Anion Gap 4 L, BUN 20 H, Creatinine 0.94, Estim Creat Clear Calc 55.64, Est GFR (MDRD) Af Amer 103, Est GFR (MDRD) Non-Af 85, BUN/Creatinine Ratio 21.3 H, Glucose 184 H, Calcium 8.2 L Micro: Microbiology 08/04/23 08:21 Mucosa - Nose SARS-CoV-2, Influenza & RSV (PCR) - Final RSV Radiography Diagnostic Testing: Radiology Impression Echocardiogram 08/04/23 19:24 Interpretation Summary Normal LV size. Left ventricular systolic function is hyperdynamic. The left ventricular ejection fraction is 70 %. No regional wall motion abnormalities noted. Stage 1 diastolic dysfunction. Contrast injection was performed. Ordering Physician: Tera Askew Performed By: Mario Nj RCS Rhythm Strip Rhythm Strip: Sinus Tach Rate: 106 Ectopy: PVC(s) Physical Exam Const alert, oriented x3, no apparent distress and average body habitus Constitutional Narrative: Pleasant elderly male, morbidly obese, sitting up comfortably in bed, conversing normally, no acute distress. General Appearance: cooperative and comfortable HEENT normocephalic, head/scalp atraumatic, hearing grossly normal bilaterally and nasal mucous membranes and turbinates normal Eyes PERRL, EOMs intact bilaterally and conjunctivae normal Neck full ROM, no lymphadenopathy and supple Lymph Lymphatic: no lymphadenopathy noted Chest inspection of chest normal Resp normal respiratory effort and no use of accessory muscles Resp Narrative: Satting in low to mid 90s on 4 L nasal cannula, no increased work of breathing noted. Mild wheezing noted in upper airways bilaterally, crackles noted throughout bilaterally, mildly decreased breath sounds throughout. Cardio regular rate, regular rhythm, no murmurs and peripheral pulses 2+ throughout GI normal to inspection, nondistended, normoactive bowel sounds, soft to palpation, non-tender and non-distended Back/Spine normal ROM Extremity normal to inspection, full ROM and no pedal edema Skin no rashes or lesions noted Neuro moves all extremities and no focal motor deficits Speech: speech normal Psych mental status grossly normal Assessment & Plan Assessment/Plan (1) COPD exacerbation: (2) Hypoxia: (3) RSV bronchitis: PLAN: Plan Patient is a 67-year-old male who presented to [facility] ED on 08/04/2023 with worsening shortness of breath. 1. Acute exacerbation of COPD with hypoxia secondary to RSV infection, stage I diastolic cardiac dysfunction No formal diagnosis of COPD, but suspect patient has COPD given extensive smoking history. RSV positive in ED. Chest x-ray mild vascular congestion, cardiomegaly noted. Patient with significant wheezing on exam on admit. Not on home O2, requiring up to 6 L nasal cannula in the ED at rest. Echo 08/04 showed EF 70%, stage I diastolic dysfunction, no other abnormalities. ? Continue IV steroids, scheduled DuoNebs for treatment of COPD exacerbation. Sputum culture pending. Will give dose of IV Lasix tonight and tomorrow, then de-escalate to p.o. Lasix and plan to continue this on discharge. Will plan for home O2 evaluation tomorrow, in hopes of discharge home tomorrow afternoon. Chronic medical conditions: ? Morbid obesity: BMI 55 on admit. Encouraged lifestyle modifications. Complicates hospital course, care and prognosis. ? Hypertension: Continue home hydrochlorothiazide with IV hydralazine as needed. ? BPH with obstructive symptoms: Continue home Flomax. ? History of tobacco use DVT prophylaxis: Lovenox CODE STATUS: Full code, verified Expected disposition: Home, 1 to 2 days Total clinical time spent by myself addressing the patient's medical issues, reviewing all the data, and collaborating with patient's care team: 35 minutes. Charges/Coding Visit Charges Inpatient E&M: 21120 Subs Hosp L2
[2023-08-05] MEDS: Tamsulosin HCl 0.4 MG Capsule 0.400000000000000022 MG PO (23:10)
[2023-08-06] VITALS (8 sets, daily range): BP systolic 146–167; BP diastolic 80–101; PULSE 79–92; RESP 16–21; TEMP 36.5–36.8; O2SAT 85–97
[2023-08-06] MEDS: Ipratropium/Albuterol Sulfate 3 ML AMPUL.NEB INHALATION ×2 (07:21→16:23)
[2023-08-06] MEDS: hydroCHLOROthiazide 25 MG Tablet PO (09:04)
[2023-08-06] MEDS: Furosemide 40 MG/4 ML Vial IV (09:05)
[2023-08-06] MEDS: predniSONE 20 MG Tablet 40 MG PO (09:11)
[2023-08-06] MEDS: 0.9% Saline Lock 10 ML Syringe IV (09:12)
--- NOTE | 2023-08-06 16:04 | PN.HOSP_ITS ---
Reason for Visit Reason for Visit: Diagnoses Acute bronchitis due to respiratory syncytial virus (08/06/23) Chronic obstructive pulmonary disease with (acute) exacerbation (08/06/23) Hypoxemia (08/06/23) Subjective Subjective Patient seen at bedside this morning. Sitting comfortably at the edge of the bed, no acute distress. Patient was on 4 L nasal cannula, no increased work of breathing noted. However, continued to have fairly significant cough with sputum production labs in the room. Patient states he is still having fairly significant shortness of breath with exertion. States he has had good urine output since Lasix started yesterday. Denies any acute pain or discomfort. No other acute concerns this time. Objective Data Objective Data Vital Signs: Vital Signs Temp Pulse Resp BP Pulse Ox O2 Del Method O2 Flow Rate 98.2 F 87 16 146/80 H 94 Nasal Cannula 5 08/06/23 15:00 08/06/23 15:00 08/06/23 15:00 08/06/23 15:00 08/06/23 15:00 08/06/23 15:00 08/06/23 15:00 Oxygen Flow Rate (L/min) [ 6 AMBULATING with Oxygen #2] Oxygen Flow Rate (L/min) [ 5 AMBULATING with Oxygen #1] Oxygen Flow Rate (L/min) [At 4 REST with Oxygen] Oxygen Flow Rate (L/min) 5 Oxygen Delivery Method Nasal Cannula Weight: 134.6 kg Body Mass Index (BMI) 55.7 Intake & Output: Intake and Output for Last 24 Hours 08/04/23 08/05/23 08/06/23 23:59 23:59 23:59 Intake Total 750 / 1150 700 / 700 Balance 750 / 1150 700 / 700 Lab / Micro Data 08/05/23 05:33 08/05/23 05:33 Micro: Microbiology 08/04/23 08:21 Mucosa - Nose SARS-CoV-2, Influenza & RSV (PCR) - Final RSV Rhythm Strip Rhythm Strip: Sinus Tach Rate: 106 Ectopy: PVC(s) Physical Exam Const alert, oriented x3, no apparent distress and average body habitus Constitutional Narrative: Pleasant elderly male, morbidly obese, sitting up comfortably in bed, conversing normally, no acute distress. General Appearance: cooperative and comfortable HEENT normocephalic, head/scalp atraumatic, hearing grossly normal bilaterally and nasal mucous membranes and turbinates normal Eyes PERRL, EOMs intact bilaterally and conjunctivae normal Neck full ROM, no lymphadenopathy and supple Lymph Lymphatic: no lymphadenopathy noted Chest inspection of chest normal Resp normal respiratory effort and no use of accessory muscles Resp Narrative: Satting in low to mid 90s on 4 L nasal cannula, no increased work of breathing noted. Continued crackles noted in upper airways, similar to previous days. No wheezing noted. Cardio regular rate, regular rhythm, no murmurs and peripheral pulses 2+ throughout GI normal to inspection, nondistended, normoactive bowel sounds, soft to palpation, non-tender and non-distended Back/Spine normal ROM Extremity normal to inspection, full ROM and no pedal edema Skin no rashes or lesions noted Neuro moves all extremities and no focal motor deficits Speech: speech normal Psych mental status grossly normal Assessment & Plan Assessment/Plan (1) COPD exacerbation: (2) Hypoxia: (3) RSV bronchitis: PLAN: Plan Patient is a 67-year-old male who presented to [facility] ED on 08/04/2023 with worsening shortness of breath. 1. Acute exacerbation of COPD with hypoxia secondary to RSV infection, stage I diastolic cardiac dysfunction No formal diagnosis of COPD, but suspect patient has COPD given extensive smoking history. RSV positive in ED. Chest x-ray mild vascular congestion, cardiomegaly noted. Patient with significant wheezing on exam on admit. Not on home O2, requiring up to 6 L nasal cannula in the ED at rest. Echo 08/04 showed EF 70%, stage I diastolic dysfunction, no other abnormalities. Given 2 doses of IV Lasix with good urine output. ? De-escalated to p.o. steroids, DuoNebs as needed and p.o. Lasix on 08/06. Patient requiring 6 L nasal cannula with exertion on 08/06 and still reports fairly significant shortness of breath subjectively with exertion. Continue treatments, will plan for home O2 evaluation tomorrow in hopes of discharge tomorrow afternoon. Chronic medical conditions: ? Morbid obesity: BMI 55 on admit. Encouraged lifestyle modifications. Complicates hospital course, care and prognosis. ? Hypertension: Continue home hydrochlorothiazide with IV hydralazine as needed. ? BPH with obstructive symptoms: Continue home Flomax. ? History of tobacco use DVT prophylaxis: Lovenox CODE STATUS: Full code, verified Expected disposition: Home, 1 to 2 days Total clinical time spent by myself addressing the patient's medical issues, reviewing all the data, and collaborating with patient's care team: 35 minutes. Charges/Coding Visit Charges Inpatient E&M: 46222 Subs Hosp L2
--- NOTE | 2023-08-06 20:00 | NURSING ---
Starting emergency charting
[2023-08-06] MEDS: Tamsulosin HCl 0.4 MG Capsule 0.400000000000000022 MG PO (22:51)
[2023-08-07] VITALS (9 sets, daily range): BP systolic 146–151; BP diastolic 87–97; PULSE 77–88; RESP 18–20; TEMP 36.4–36.7; O2SAT 85–96
[2023-08-07] MEDS: Acetaminophen 325 MG Tablet 650 MG PO (08:28)
[2023-08-07] MEDS: Furosemide 20 MG Tablet PO (08:28)
[2023-08-07] MEDS: hydroCHLOROthiazide 25 MG Tablet PO (08:28)
[2023-08-07] MEDS: predniSONE 20 MG Tablet 40 MG PO (08:28)
--- NOTE | 2023-08-07 14:13 | DCINST_ITS ---
Discharge Instructions Diet Discharge Diet: No restrictions Activity Discharge Activity: No Restrictions Weight Bearing Status: Full weight bearing Follow Up Care Please Follow Up With: Elmer Kam MD When: 1 to 2 weeks Test Results: Test results from this visit will be discussed in further detail at your follow- up appointment, if applicable. Pending Tests Upon Discharge: None Discharge Plan Admission Admit Date/Time: 08/06/23 12:22 Primary Reason for Your Visit: Cough, shortness of breath Attending Provider: Tera Askew Primary Care Provider: Elmer Kam Instructions Additional Instructions / Restrictions: Please use inhalers and take new medications as noted below. Follow-up with your primary care doctor in the next 1 to 2 weeks. Would recommend establishing with a lung doctor (filter plant operator) soon as well. Discharge Orders/Prescriptions Prescriptions: New prednisone 20 mg Tablet 40 mg PO BREAKFAST 2 Days Qty: 4 0RF furosemide 20 mg Tablet 20 mg PO DAILY 30 Days Qty: 30 0RF albuterol sulfate 90 mcg/actuation HFA aerosol inhaler 1 inh inhalation Q6H PRN (Reason: shortness of breath or wheezing) Qty: 8.5 2RF albuterol sulfate 2.5 mg /3 mL (0.083 %) solution for nebulization 2.5 mg inhalation Q4H PRN (Reason: shortness of breath or wheezing) Qty: 75 0RF Continued tamsulosin 0.4 mg capsule 0.4 mg PO QHS hydrochlorothiazide 25 mg tablet 25 mg PO DAILY Referrals / Follow Up: Elmer Kma MD [Primary Care Provider] - Care Physician,No Primary [Non-Staff] - Disposition Disposition (needs filled in before D/C Order can be placed): Home, Self Care
--- NOTE | 2023-08-07 14:18 | PCM.DC.SUM ---
Providers Date of Admission: 08/04/23 Date of Discharge: 08/07/23 Primary Care Physician: Dr. Elmer Kam MD Reason For Visit: COPD EXACERBATION, RSV INFECTION Diagnosis Discharge Diagnosis (1) COPD exacerbation: Status: Chronic Code(s): J44.1 - Chronic obstructive pulmonary disease with (acute) exacerbation (2) Hypoxia: Status: Acute Code(s): R09.02 - Hypoxemia (3) RSV bronchitis: Status: Acute Code(s): J20.5 - Acute bronchitis due to respiratory syncytial virus Medications at Discharge Home Medications hydrochlorothiazide 25 mg tablet 25 mg PO DAILY BLOOD PRESSURE 08/04/23 tamsulosin 0.4 mg capsule 0.4 mg PO QHS PROSTATE 08/04/23 albuterol sulfate 2.5 mg/3 mL (0.083 %) solution for nebulization 2.5 mg (3 mL) inhalation Q4H PRN shortness of breath or wheezing #75 mL 08/07/23 albuterol sulfate 90 mcg/actuation aerosol inhaler 1 inh inhalation Q6H PRN shortness of breath or wheezing #8.5 grams 08/07/23 furosemide 20 mg tablet 20 mg PO DAILY 30 days #30 tabs 08/07/23 prednisone 20 mg tablet 40 mg (2 x 20 mg) PO BREAKFAST 2 days #4 tabs 08/07/23 Hospital Course Operations None Procedures EKG and - (Chest x-ray) Summary of Care Provided Minutes Spent on Discharge: 35 Hospital Course: Patient is a 67-year-old male who presented to [facility] ED on 08/04/2023 with worsening shortness of breath. Hospital course as noted below. Discharged home with supplemental O2 in stable condition on 08/07. 1. Acute exacerbation of COPD with hypoxia secondary to RSV infection, stage I diastolic cardiac dysfunction No formal diagnosis of COPD, but suspect patient has COPD given extensive smoking history. RSV positive in ED. Chest x-ray mild vascular congestion, cardiomegaly noted. Patient with significant wheezing on exam on admit. Not on home O2, requiring up to 6 L nasal cannula in the ED at rest. Echo 08/04 showed EF 70%, stage I diastolic dysfunction, no other abnormalities. Given 2 doses of IV Lasix with good urine output. De-escalated to p.o. steroids, DuoNebs as needed and p.o. Lasix on 08/06. ? Patient improved to 3 to 4 L of oxygen on room air, did not require up to 6 L nasal cannula with exertion on 08/07. However, expect that patient will continue to improve over the next several days as his infection subsides. Provided with albuterol rescue inhaler and albuterol nebulizer as needed on discharge. Recommend outpatient follow-up with PCP and pulmonology, will need formal PFTs done once patient has improved from this exacerbation. Continue Lasix 20 mg daily on discharge. Chronic medical conditions: ? Morbid obesity: BMI 55 on admit. Encouraged lifestyle modifications. Complicates hospital course, care and prognosis. ? Hypertension: Continue home hydrochlorothiazide. ? BPH with obstructive symptoms: Continue home Flomax. ? History of tobacco use Total clinical time spent by myself addressing the patient's discharge needs: 35 minutes. Physical Exam Const alert, oriented x3, no apparent distress and average body habitus Constitutional Narrative: Pleasant elderly male, morbidly obese, sitting up comfortably in bed, conversing normally, no acute distress. General Appearance: cooperative and comfortable HEENT normocephalic, head/scalp atraumatic, hearing grossly normal bilaterally and nasal mucous membranes and turbinates normal Eyes PERRL, EOMs intact bilaterally and conjunctivae normal Neck full ROM, no lymphadenopathy and supple Lymph Lymphatic: no lymphadenopathy noted Chest inspection of chest normal Resp normal respiratory effort and no use of accessory muscles Resp Narrative: Satting in low to mid 90s on 4 L nasal cannula, no increased work of breathing noted. Continued crackles noted in upper airways, similar to previous days. No wheezing noted. Cardio regular rate, regular rhythm, no murmurs and peripheral pulses 2+ throughout GI normal to inspection, nondistended, normoactive bowel sounds, soft to palpation, non-tender and non-distended Back/Spine normal ROM Extremity normal to inspection, full ROM and no pedal edema Skin no rashes or lesions noted Neuro moves all extremities and no focal motor deficits Speech: speech normal Psych mental status grossly normal Weight / BMI Weight Weight: 134.6 kg Body Mass Index (BMI) 55.7 ABG / Lab / Microbiology Data 08/05/23 05:33 08/05/23 05:33 Microbiology: Microbiology 08/04/23 08:21 Mucosa - Nose SARS-CoV-2, Influenza & RSV (PCR) - Final RSV D/C Instructions Discharge Diet: No restrictions Weight Bearing Status: Full weight bearing Pending Tests Upon Discharge: None Please Follow Up With: Elmer Kam MD When: 1 to 2 weeks Meaningful Use Info Meaningful Use Diagnoses (Choose all that apply): None applicable Discharge Plan Admission Admit Date/Time: 08/06/23 12:22 Primary Reason for Your Visit: Cough, shortness of breath Attending Provider: Tera Askew Primary Care Provider: Elmer Kam Instructions Additional Instructions / Restrictions: Please use inhalers and take new medications as noted below. Follow-up with your primary care doctor in the next 1 to 2 weeks. Would recommend establishing with a lung doctor (facility coordinator) soon as well. Discharge Orders/Prescriptions Prescriptions: New prednisone 20 mg Tablet 40 mg PO BREAKFAST 2 Days Qty: 4 0RF furosemide 20 mg Tablet 20 mg PO DAILY 30 Days Qty: 30 0RF albuterol sulfate 90 mcg/actuation HFA aerosol inhaler 1 inh inhalation Q6H PRN (Reason: shortness of breath or wheezing) Qty: 8.5 2RF albuterol sulfate 2.5 mg /3 mL (0.083 %) solution for nebulization 2.5 mg inhalation Q4H PRN (Reason: shortness of breath or wheezing) Qty: 75 0RF Continued tamsulosin 0.4 mg capsule 0.4 mg PO QHS hydrochlorothiazide 25 mg tablet 25 mg PO DAILY Referrals / Follow Up: Elmer Kam MD [Primary Care Provider] - Care Physician,No Primary [Non-Staff] - Disposition Disposition (needs filled in before D/C Order can be placed): Home, Self Care Charges/Coding Visit Charges Inpatient E&M: 11726 Disch Hosp >30min
--- NOTE | 2023-08-07 15:15 | CASEMGMT ---
Patient has order for discharge. Patient will require oxygen at discharge. Script received for home oxygen and nebulizer. Referral sent to [facility] via [facility] with arrangements for portable tank delivered to room. DONNA CM in to discuss discharge with patient. Patient denied HHC or needs at discharge. Patient had no further questions or concerns at this time.
[2023-08-07] MEDS: Sodium Chloride 0.65% 1 SPRAY SPRAY.BTL 2 SPRAY NASAL (15:48)
== END 2023-08-07 16:26 | disposition home or self-care (01) | DRG 202 ==
LOC: ED 09:41 → PCU 10:28
PROVIDERS: Admitting Provider Hospitalist; Emergency Provider Emergency Medicine; PCP Family Medicine; Visit Provider Hospitalist
DX: J20.5 Acute bronchitis due to respiratory syncytial virus (principal); J44.1 Chronic obstructive pulmonary disease with (acute) exacerbation; J44.0 Chronic obstructive pulmonary disease with (acute) lower respiratory infection; Z68.43 Body mass index [BMI] 50.0-59.9, adult; N13.8 Other obstructive and reflux uropathy; E66.01 Morbid (severe) obesity due to excess calories; I10 Essential (primary) hypertension; R11.2 Nausea with vomiting, unspecified; R09.02 Hypoxemia; Z11.52 Encounter for screening for COVID-19; N40.1 Benign prostatic hyperplasia with lower urinary tract symptoms; Z87.891 Personal history of nicotine dependence; Z79.899 Other long term (current) drug therapy
CPT/HCPCS: 36415; 71045; 80048; 82803; 83036; 83880; 84484; 85025; 85027; 87631; 93005; 93306; 94640; 94668; 99252; 99285; Q9957; A4216; C8929; G0463; J1940